=== PATIENT | female | born 1950 | race Caucasian/White ===

== ENCOUNTER 2019-08-15 09:20 | Outpatient (CLI) | payer MEDICARE, SELFPAY ==
[2019-08-15 09:57] LABS: Basophils Percent Auto 1.4 % (0.2-1.2); Eosinophils Absolute Auto 0.1 K/mm3 (0-0.3); Eosinophils Percent Auto 3.1 % (0-4.4); Hematocrit 41.4 % (37.0-47.0); Hemoglobin 12.9 g/dL (12.0-15.0); Immature Granulocyte Absolute 0.01 K/mm3 (0.00-0.031); Immature Granulocyte Percent A 0.3 % (0-0.5); Lymphocytes Absolute Auto 1.06 K/mm3 (0.9-3.2); Lymphocytes Percent Auto 36.3 % (18.3-44.2); Mean Corpuscular HGB Conc 31.2 g/dl (32-36); Mean Corpuscular Volume 86.6 fl (80-100); Monocytes Absolute Auto 0.2 K/mm3 (0.1-0.6); Monocytes Percent Auto 6.8 % (2.6-8.5); Neutrophils Absolute Auto 1.5 K/mm3 (1.3-6.7); Neutrophils Percent Auto 52.1 % (45.5-73.1); Platelet Count Result 123 k/mm3 (150-375); Red Blood Count 4.78 M/mm3 (4.2-5.4); Red Cell Distribution Width 15.7 % (11.5-14.5); White Blood Count 2.9 K/mm3 (4.5-10.0)
[2019-08-15 12:04] LABS: Vitamin D 25 Hydroxy 44.6 ng/mL
[2019-08-15 12:27] LABS: Iron 108 ug/dL (37-170); Percent Iron Saturation 29 % (20-50)
[2019-08-15 12:47] LABS: LDL Cholesterol Direct 112 mg/dL
[2019-08-15 12:51] LABS: Alanine Aminotransferase 16 U/L (4-35); Albumin Level 4.7 g/dL (3.5-5.1); Alkaline Phosphatase 96 U/L (38-126); Aspartate Amino Transferase 23 U/L (14-36); Bilirubin,Total 0.5 mg/dL (0.2-1.3); Blood Urea Nitrogen 18 mg/dL (7-17); Calcium 10.4 mg/dL (8.4-10.2); Carbon Dioxide 30 mmol/L (22-30); Chloride 103 mmol/L (98-107); Cholesterol 167 mg/dL (0-200); Estimated Glomerular Filt Rate > 60; Glucose 110 mg/dL (65-105); HDL Direct 42 mg/dL; Potassium 4.7 mmol/L (3.4-5.0); Sodium 139 mmol/L (137-145); Thyroid Stimulating Hormone 0.869 uIU/mL (0.465-4.680); Triglycerides 98 mg/dL (<150)
[2019-08-15 14:03] LABS: Free T4 Free Thyroxine 1.04 ng/mL (0.78-2.19)
== END 2019-08-15 09:21 | disposition home or self-care (01) ==
PROVIDERS: PCP Internal Medicine; Visit Provider Internal Medicine Hematology & Oncology
DX: E78.5 Hyperlipidemia, unspecified (principal); E55.9 Vitamin D deficiency, unspecified; D69.59 Other secondary thrombocytopenia
CPT/HCPCS: 36415; 80053; 80061; 82306; 82728; 83540; 83550; 84439; 84443; 85025; 85055

== ENCOUNTER 2020-02-10 14:05 | Outpatient (CLI) | payer MEDICARE, SELFPAY ==
[2020-02-10 14:39] LABS: Basophils Percent Auto 0.8 % (0.2-1.2); Eosinophils Absolute Auto 0.1 K/mm3 (0-0.3); Eosinophils Percent Auto 2.7 % (0-4.4); Hematocrit 38.4 % (37.0-47.0); Hemoglobin 12.1 g/dL (12.0-15.0); Immature Granulocyte Absolute 0.01 K/mm3 (0.00-0.031); Immature Granulocyte Percent A 0.3 % (0-0.5); Immature Platelet Fraction Pct 24.3 % (0.9-11.2); Lymphocytes Percent Auto 37.9 % (18.3-44.2); Mean Corpuscular HGB Conc 31.5 g/dl (32-36); Mean Corpuscular Hemoglobin 27.3 pg (26-34); Mean Corpuscular Volume 86.7 fl (80-100); Monocytes Absolute Auto 0.3 K/mm3 (0.1-0.6); Neutrophils Absolute Auto 1.9 K/mm3 (1.3-6.7); Neutrophils Percent Auto 51.3 % (45.5-73.1); Platelet Count Result 118 k/mm3 (150-375); Red Blood Count 4.43 M/mm3 (4.2-5.4); Red Cell Distribution Width 15.6 % (11.5-14.5); White Blood Count 3.7 K/mm3 (4.5-10.0)
[2020-02-10 17:30] LABS: Iron 66 ug/dL (37-170)
[2020-02-10 17:31] LABS: Alanine Aminotransferase 21 U/L (4-35); Albumin Level 4.1 g/dL (3.5-5.1); Alkaline Phosphatase 86 U/L (38-126); Anion Gap 9 mmol/L (8-16); Aspartate Amino Transferase 29 U/L (14-36); Bilirubin,Total 0.2 mg/dL (0.2-1.3); Blood Urea Nitrogen 24 mg/dL (7-17); Calcium 10.3 mg/dL (8.4-10.2); Carbon Dioxide 28 mmol/L (22-30); Chloride 102 mmol/L (98-107); Estimated Glomerular Filt Rate > 60; Glucose 92 mg/dL (65-105); Potassium 4.6 mmol/L (3.4-5.0); Sodium 139 mmol/L (137-145)
[2020-02-10 17:43] LABS: Percent Iron Saturation 17 % (20-50)
== END 2020-02-10 14:06 | disposition home or self-care (01) ==
PROVIDERS: PCP Internal Medicine; Visit Provider Internal Medicine Hematology & Oncology
DX: D72.819 Decreased white blood cell count, unspecified (principal); D50.9 Iron deficiency anemia, unspecified
CPT/HCPCS: 36415; 80053; 82728; 83540; 83550; 85025; 85055

== ENCOUNTER 2020-08-11 15:18 | Outpatient (CLI) | payer MEDICARE, SELFPAY ==
[2020-08-11 15:42] LABS: Basophils Percent Auto 1.3 % (0.2-1.2); Eosinophils Absolute Auto 0.1 K/mm3 (0-0.3); Eosinophils Percent Auto 3.2 % (0-4.4); Hematocrit 38.5 % (37.0-47.0); Hemoglobin 12.1 g/dL (12.0-15.0); Immature Granulocyte Absolute 0.01 K/mm3 (0.00-0.031); Immature Granulocyte Percent A 0.3 % (0-0.5); Lymphocytes Absolute Auto 1.53 K/mm3 (0.9-3.2); Lymphocytes Percent Auto 48.7 % (18.3-44.2); Mean Corpuscular HGB Conc 31.4 g/dl (32-36); Mean Corpuscular Hemoglobin 27.3 pg (26-34); Mean Corpuscular Volume 86.7 fl (80-100); Monocytes Absolute Auto 0.2 K/mm3 (0.1-0.6); Monocytes Percent Auto 6.7 % (2.6-8.5); Neutrophils Absolute Auto 1.3 K/mm3 (1.3-6.7); Neutrophils Percent Auto 39.8 % (45.5-73.1); Platelet Count Result 122 k/mm3 (150-375); Red Blood Count 4.44 M/mm3 (4.2-5.4); White Blood Count 3.1 K/mm3 (4.5-10.0)
[2020-08-11 16:44] LABS: Alanine Aminotransferase 16 U/L (4-35); Albumin Level 4.2 g/dL (3.5-5.1); Alkaline Phosphatase 91 U/L (38-126); Anion Gap 9 mmol/L (8-16); Aspartate Amino Transferase 25 U/L (14-36); Bilirubin,Total 0.2 mg/dL (0.2-1.3); Blood Urea Nitrogen 24 mg/dL (7-17); Calcium 10.1 mg/dL (8.4-10.2); Carbon Dioxide 27 mmol/L (22-30); Chloride 104 mmol/L (98-107); Estimated Glomerular Filt Rate > 60; Glucose 98 mg/dL (65-105); Potassium 4.6 mmol/L (3.4-5.0); Sodium 140 mmol/L (137-145)
[2020-08-11 17:18] LABS: Iron 70 ug/dL (37-170)
[2020-08-11 17:28] LABS: Percent Iron Saturation 21 % (20-50)
== END 2020-08-11 15:19 | disposition home or self-care (01) ==
LOC: ANHLAB 15:24
PROVIDERS: PCP Internal Medicine; Visit Provider Internal Medicine Hematology & Oncology
DX: D50.9 Iron deficiency anemia, unspecified (principal)
CPT/HCPCS: 36415; 80053; 82728; 83540; 83550; 85025; 85055

== ENCOUNTER 2022-03-25 14:24 | Outpatient (CLI) | payer MEDICARE, SELFPAY ==
[2022-03-25 14:40] LABS: Basophils Absolute Auto 0.1 K/mm3 (0.0-0.1); Basophils Percent Auto 1.4 % (0.2-1.2); Eosinophils Absolute Auto 0.1 K/mm3 (0-0.3); Eosinophils Percent Auto 3.2 % (0-4.4); Hematocrit 35.7 % (37.0-47.0); Hemoglobin 11.2 g/dL (12.0-15.0); Immature Granulocyte Absolute 0.01 K/mm3 (0.00-0.031); Immature Granulocyte Percent A 0.3 % (0-0.5); Immature Platelet Fraction Pct 24.3 % (0.9-11.2); Lymphocytes Absolute Auto 1.78 K/mm3 (0.9-3.2); Lymphocytes Percent Auto 48.1 % (18.3-44.2); Mean Corpuscular HGB Conc 31.4 g/dl (32-36); Mean Corpuscular Hemoglobin 27.3 pg (26-34); Mean Corpuscular Volume 86.9 fl (80-100); Monocytes Absolute Auto 0.4 K/mm3 (0.1-0.6); Monocytes Percent Auto 9.5 % (2.6-8.5); Neutrophils Absolute Auto 1.4 K/mm3 (1.3-6.7); Neutrophils Percent Auto 37.5 % (45.5-73.1); Platelet Count Result 134 k/mm3 (150-375); Red Blood Count 4.11 M/mm3 (4.2-5.4); Red Cell Distribution Width 17.2 % (11.5-14.5); White Blood Count 3.7 K/mm3 (4.5-10.0)
[2022-03-25 14:50] LABS: Anisocytosis 1+ (NORMAL); Atypical Lymphocytes Present; Crenated RBC 1+ (NORMAL); Ovalocytes 1+ (NORMAL); Platelet Estimate Decreased (Adequate); Poikilocytosis 2+ (NORMAL); Schistocytes None Seen (NORMAL)
[2022-03-25 15:19] LABS: Alanine Aminotransferase 20 U/L (6-35); Albumin Level 4.6 g/dL (3.5-5.1); Alkaline Phosphatase 83 U/L (38-126); Anion Gap 5 mmol/L (8-16); Aspartate Amino Transferase 29 U/L (14-36); Bilirubin,Total 0.3 mg/dL (0.2-1.3); Blood Urea Nitrogen 26 mg/dL (7-17); Calcium 9.9 mg/dL (8.4-10.2); Carbon Dioxide 31 mmol/L (22-30); Chloride 100 mmol/L (98-107); Estimated Glomerular Filt Rate > 60; Glucose 99 mg/dL (65-110); Potassium 4.5 mmol/L (3.4-5.0); Sodium 136 mmol/L (137-145)
[2022-03-25 15:45] LABS: Iron 70 ug/dL (37-170)
[2022-03-25 15:54] LABS: Percent Iron Saturation 18 % (20-50)
== END 2022-03-25 14:25 | disposition home or self-care (01) ==
LOC: ANHLAB 14:26
PROVIDERS: PCP Internal Medicine; Visit Provider Internal Medicine Hematology & Oncology
DX: D72.819 Decreased white blood cell count, unspecified (principal); D69.59 Other secondary thrombocytopenia
CPT/HCPCS: 36415; 80053; 83540; 83550; 85025; 85055

== ENCOUNTER 2022-09-23 14:14 | Outpatient (CLI) | payer MEDICARE, SELFPAY ==
[2022-09-23 14:30] LABS: Basophils Percent Auto 1.1 % (0.2-1.2); Eosinophils Absolute Auto 0.1 K/mm3 (0-0.3); Eosinophils Percent Auto 3.7 % (0-4.4); Hemoglobin 11.4 g/dL (12.0-15.0); Immature Granulocyte Absolute 0.09 K/mm3 (0.00-0.031); Immature Granulocyte Percent A 2.6 % (0-0.5); Immature Platelet Fraction Pct 23.4 % (0.9-11.2); Lymphocytes Absolute Auto 1.63 K/mm3 (0.9-3.2); Lymphocytes Percent Auto 46.8 % (18.3-44.2); Mean Corpuscular HGB Conc 30.8 g/dl (32-36); Mean Corpuscular Hemoglobin 26.8 pg (26-34); Mean Corpuscular Volume 86.9 fl (80-100); Monocytes Absolute Auto 0.3 K/mm3 (0.1-0.6); Monocytes Percent Auto 9.8 % (2.6-8.5); Neutrophils Absolute Auto 1.3 K/mm3 (1.3-6.7); Platelet Count Result 134 k/mm3 (150-375); Red Blood Count 4.26 M/mm3 (4.2-5.4); Red Cell Distribution Width 17.9 % (11.5-14.5); White Blood Count 3.5 K/mm3 (4.5-10.0)
[2022-09-23 14:39] LABS: Atypical Lymphocytes Present; Giant Platelets Present; Platelet Estimate Decreased (Adequate); Schistocytes None Seen (NORMAL)
[2022-09-23 15:34] LABS: Iron 78 ug/dL (37-170)
[2022-09-23 15:37] LABS: Anion Gap 5 mmol/L (8-16); Blood Urea Nitrogen 25 mg/dL (7-17); Calcium 10.4 mg/dL (8.4-10.2); Carbon Dioxide 32 mmol/L (22-30); Chloride 102 mmol/L (98-107); Estimated Glomerular Filt Rate > 60; Glucose 106 mg/dL (65-110); Potassium 4.5 mmol/L (3.4-5.0); Sodium 139 mmol/L (137-145)
[2022-09-23 15:43] LABS: Percent Iron Saturation 21 % (20-50)
[2022-09-23 16:47] LABS: Folic Acid > 20.0 ng/mL (2.76->20)
== END 2022-09-23 14:15 | disposition home or self-care (01) ==
LOC: ANHLAB 14:16
PROVIDERS: PCP Internal Medicine; Visit Provider Internal Medicine Hematology & Oncology
DX: D50.9 Iron deficiency anemia, unspecified (principal)
CPT/HCPCS: 36415; 80048; 82607; 82728; 82746; 83540; 83550; 85025; 85055

== ENCOUNTER 2023-10-06 13:05 | Outpatient (CLI) | payer MEDICARE, SELFPAY ==
[2023-10-06 14:42] LABS: Basophils Percent Auto 0.9 % (0.2-1.2); Eosinophils Absolute Auto 0.1 K/mm3 (0-0.3); Eosinophils Percent Auto 1.7 % (0-4.4); Hematocrit 33.2 % (37.0-47.0); Hemoglobin 10.5 g/dL (12.0-15.0); Immature Granulocyte Absolute 0.01 K/mm3 (0.00-0.031); Immature Granulocyte Percent A 0.3 % (0-0.5); Immature Platelet Fraction Pct 27.1 % (0.9-11.2); Lymphocytes Absolute Auto 1.12 K/mm3 (0.9-3.2); Lymphocytes Percent Auto 32.7 % (18.3-44.2); Mean Corpuscular HGB Conc 31.6 g/dl (32-36); Mean Corpuscular Hemoglobin 26.8 pg (26-34); Mean Corpuscular Volume 84.7 fl (80-100); Monocytes Absolute Auto 0.3 K/mm3 (0.1-0.6); Monocytes Percent Auto 7.9 % (2.6-8.5); Neutrophils Absolute Auto 1.9 K/mm3 (1.3-6.7); Neutrophils Percent Auto 56.5 % (45.5-73.1); Platelet Count Result 115 k/mm3 (150-375); Red Blood Count 3.92 M/mm3 (4.2-5.4); Red Cell Distribution Width 19.2 % (11.5-14.5); White Blood Count 3.4 K/mm3 (4.5-10.0)
[2023-10-06 15:30] LABS: Alanine Aminotransferase 13 U/L (6-35); Albumin Level 4.3 g/dL (3.5-5.1); Alkaline Phosphatase 84 U/L (38-126); Anion Gap 11 mmol/L (4-12); Aspartate Amino Transferase 23 U/L (14-36); Bilirubin,Total 0.7 mg/dL (0.2-1.3); Blood Urea Nitrogen 36 mg/dL (7-17); Calcium 10.3 mg/dL (8.4-10.2); Carbon Dioxide 25 mmol/L (22-30); Chloride 101 mmol/L (98-107); Estimated Glomerular Filt Rate > 60; Glucose 97 mg/dL (65-110); Potassium 3.9 mmol/L (3.4-5.0); Sodium 137 mmol/L (137-145)
[2023-10-06 15:35] LABS: Iron 76 ug/dL (37-170)
[2023-10-06 16:04] LABS: Percent Iron Saturation 24 % (20-50)
[2023-10-06 16:45] LABS: Folic Acid > 20.0 ng/mL (2.76->20)
== END 2023-10-06 13:06 | disposition home or self-care (01) ==
PROVIDERS: PCP Internal Medicine; Visit Provider Nurse Practitioner Family
DX: D50.9 Iron deficiency anemia, unspecified (principal)
CPT/HCPCS: 36415; 80053; 82607; 82728; 82746; 83540; 83550; 85025; 85055

== ENCOUNTER 2024-05-17 10:45 | Outpatient (CLI) | payer MEDICARE, SELFPAY ==
[2024-05-17 11:20] LABS: Basophils Absolute Auto 0.1 K/mm3 (0.0-0.1); Basophils Percent Auto 1.6 % (0.2-1.2); Eosinophils Absolute Auto 0.1 K/mm3 (0-0.3); Eosinophils Percent Auto 3.1 % (0-4.4); Hematocrit 35.1 % (37.0-47.0); Hemoglobin 10.8 g/dL (12.0-15.0); Immature Granulocyte Absolute 0.01 K/mm3 (0.00-0.031); Immature Granulocyte Percent A 0.3 % (0-0.5); Immature Platelet Fraction Pct 22.1 % (0.9-11.2); Lymphocytes Absolute Auto 1.59 K/mm3 (0.9-3.2); Lymphocytes Percent Auto 49.5 % (18.3-44.2); Mean Corpuscular HGB Conc 30.8 g/dl (32-36); Mean Corpuscular Volume 84.6 fl (80-100); Monocytes Absolute Auto 0.3 K/mm3 (0.1-0.6); Monocytes Percent Auto 9.3 % (2.6-8.5); Neutrophils Absolute Auto 1.2 K/mm3 (1.3-6.7); Neutrophils Percent Auto 36.2 % (45.5-73.1); Platelet Count Result 138 k/mm3 (150-375); Red Blood Count 4.15 M/mm3 (4.2-5.4); Red Cell Distribution Width 19.3 % (11.5-14.5); White Blood Count 3.2 K/mm3 (4.5-10.0)
[2024-05-17 11:30] LABS: Alanine Aminotransferase 21 U/L (6-35); Albumin Level 4.5 g/dL (3.5-5.1); Alkaline Phosphatase 89 U/L (38-126); Anion Gap 9 mmol/L (4-12); Aspartate Amino Transferase 27 U/L (14-36); Bilirubin,Total 0.4 mg/dL (0.2-1.3); Blood Urea Nitrogen 24 mg/dL (7-17); Calcium 10.2 mg/dL (8.4-10.2); Carbon Dioxide 29 mmol/L (22-30); Chloride 103 mmol/L (98-107); Estimated Glomerular Filt Rate > 60; Glucose 95 mg/dL (65-110); Potassium 4.7 mmol/L (3.4-5.0); Sodium 141 mmol/L (137-145)
[2024-05-17 11:31] LABS: Iron 105 ug/dL (37-170)
--- OUTSIDE RECORDS SUMMARY | 2024-05-17 11:39 | XMS_ITS | CONTINUITY OF CARE DOCUMENT ---
Author Name laurel barragan Address Unknown Organization [facility] Address [address] [place] [address] Phone [phone] Care Team Providers Care Polysomnographic Tech Name Role Phone Rayne NAVARRO, Santiago Unavailable [phone] RAHDA NAVARRO, BERNICE Unavailable RADHA NAVARRO, BERNICE Unavailable PROBLEMS Condition Status Date Provider Notes Murmur, cardiac, undiagnosed active [facility] INSURANCE PROVIDERS Payer name Policy type / Coverage type [place] [employer] GOLD PLUS HMO HMO HU[employer] PPO HMO [id number] TREATMENT PLAN Date Name Complete Echo
--- OUTSIDE RECORDS SUMMARY | 2024-05-17 11:39 | XMS_ITS | Clinical Summary ---
Author Organization [facility] Address [address] [place] [address] Care Team Providers Care Dress Fitter Name Role Phone Adolfo Gutiérrez MD Primary Care Provider Allergies Active Allergy Reactions Criticality Noted Date Comments Anesthetics - Amide Type - Select Amino Amides Other (See Comments) 02/06/2019 Anesthetics - Maria Dolores Type- Parabens Other (See Comments) 02/06/2019 Medications metoprolol tartrate (LOPRESSOR) 100 mg tablet Take 100 mg by mouth daily . 03/08/2018 Active pravastatin (PRAVACHOL) 20 mg tablet Take 20 mg by mouth daily . 03/20/2018 Active famotidine (PEPCID) 20 mg tablet Take 20 mg by mouth daily . Active C,E,zinc,copper 11/grsxt7h/lut (OCUVITE ADULT 50 PLUS ORAL) Take by mouth. Active cyanocobalamin 1,000 mcg Tablet Take 1,000 mcg by mouth daily. Active mv-mn-folic ac-vit K-herb 289 (ALIVE ONCE DAILY WOMEN 50 PLUS) 800-100 mcg Tablet Alive Once Daily Women 50 Plus 1 tablet daily Active qray-OU-ynx-epa -ZWV-MFWW-ls-mv 1.5 mg iron- 8.73 mg capsule,IR & delay rel,biphase iron 65mg daily Active glucosam-chond- hyalu-CF borate (MOVE FREE JOINT HEALTH) 750 mg-100 mg- 1.65 mg-108 mg Tablet Move Free Joint Health 2 tablets daily Active Vascepa 1 gram Capsule Take 2 Grams by mouth 2 times daily with meals. 01/02/2023 Active hydroCHLOROthia zide 12.5 mg tablet Take 12.5 mg by mouth daily. 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 Encounters Date Type Department Care Team Description 05/15/2024 External Device Data [facility] ABSTRACTION Provider, Abstract 04/30/2024 External Device Data [facility] Provider, Abstract 04/09/2024 External Device Data [facility] Provider, Abstract 04/03/2024 External Device Data [facility] Provider, Abstract 04/03/2024 External Device Data [facility] ABSTRACTION Provider, Abstract from Last 3 Months Family History Medical History Relation Name Comments Heart Disease Father Stroke Mother Relation Name Status Comments Father Mother Social History Tobacco Use Types Packs/Day Years Used Date Smoking Tobacco: Former Cigarettes 1 10 Smokeless Tobacco: Never Tobacco Cessation:Counseling Given: Not Answered Alcohol Use Standard Drinks/Week Comments Yes 0 (1 standard drink = 0.6 oz pur e alcohol) occassional Comments No Sex and Gender Information Value Date Recorded Sex Assigned at Not on file Legal Sex Female 3:35 PM [employer] Gender Identity Not on file Sexual Orientation Not on file Last Filed Vital Signs Vital Sign Reading Time Taken Comments Blood Pressure 123/66 04/10/2023 3:30 PM [employer] Pulse 76 04/10/2023 3:30 PM [employer] Temperature 36.4 C (97.6 F) 03/30/2022 3:01 PM [employer] Respiratory Rate 16 04/10/2023 3:30 PM [employer] Oxygen Saturation 97% 04/10/2023 3:30 PM [employer] Inhaled Oxygen Concentration - - Weight 83.2 kg (183 lb 6.4 oz) 04/10/2023 3:30 P M [employer] Height 170.2 cm (5' 7 ) 02/06/2019 1:40 PM [employer] Body Mass Index 28.72 02/06/2019 1:40 PM [employer] Plan of Treatment Upcoming Encounters Date Type Department Care Team (Late st Contact Info) Description 05/23/2024 11:30 AM CDT Office Visit [facility] - [place] [address] [place] [address] Lawrence Lacey MD [address] [place] [address] Health Maintenance Due Date Last Done Comments DTAP/TDAP/TD VACCINES (1 - Tdap) 1967 ZOSTER VACCINE (1 of 2) 1998 OSTEOPOROSIS SCREENING 2013 RSV VACCINE (60+ or ) (1 - 1-dose 75+ series) 2023 INFLUENZA VACCINE (#1) 2023 3, 01/06/2021, 02/24/2020, Additional history exists Medicare Ad[place] ([place]) Preventative Visit/Annual Wellness Visit 03/13/2024 COLORECTAL SCREENING Discontinued 11/12/2009 Colorectal Cancer Screening Discontinued PNEUMOCOCCAL VACCINE 50+ YEARS Completed 06/09/2021 , 10/21/2019 FIT-DNA Q 3 years Discontinued FIT/FOBT Q 1 year Discontinued Flex Sig/CT Colonography Q 5 years Discontinued Insurance [employer] [facility] [employer] [facility] Care Teams Dress Fitter Relationship Specialty Start Date End Date Adolfo Gutiérrez MD PCP - General Internal Medicine 04/11/18
--- OUTSIDE RECORDS SUMMARY | 2024-05-17 11:40 | XMS_ITS | Data Portability ---
Author Organization [place] [facility] [employer], Main Office Address [address] [place] [address] Care Team Providers Care Vessel Welder Name Role Phone ADOLFO GUTIÉRREZ Primary Care Provider Assessment Encounter Date Assessment Date Assessment LastModified by Organization Details LastModified Time 07/10/2023 07/10/2023 04/30/2022: TSH 0.18L, FT4 1.2 LIPIDS: HDL 35 CMP: WNL A1C 5.7 CBC: WBC 3.4L, HGB 11.6, PLT 127L 09/23/2022: Dr Lacey WBC 3.5, HGB 11.4, PLT 134 Addendum: Labs after she left, case sent to [place] 12/17/2022: TSH 0.14L, FT4 1.0 Gluc 105 A1C 5.4 WBC 3.0, HGB 11.1 06/27/2023: Gluc 101 Ca 10.9 A1C 5.8 WBC 2.4L, HGB 11.1 [email or web address] Not available 07/20/2023 09:01:07 11/29/2023 11/29/2023 04/30/2022: TSH 0.18L, FT4 1.2 LIPIDS: HDL 35 CMP: WNL A1C 5.7 CBC: WBC 3.4L, HGB 11.6, PLT 127L 09/23/2022: Dr Lacey WBC 3.5, HGB 11.4, PLT 134 Addendum: Labs after she left, case sent to [place] 12/17/2022: TSH 0.14L, FT4 1.0 Gluc 105 A1C 5.4 WBC 3.0, HGB 11.1 06/27/2023: Gluc 101 Ca 10.9 A1C 5.8 WBC 2.4L, HGB 11.1 10/06/2023: Nargis Salazar [employer] BUN 26H WBC 3.4L, H/H 10.5/33.2, PLT 115 [email or web address] Not available 11/29/2023 15:01:18 Plan of Treatment Reminders Order Date Submit Date Provider Last Modified By Organization Details Last Modified Time Details Appointments None recorded. Lab HbA1c (hemoglob in A1c), blood 2023 [facility], [address], [place], [address], 4 15:39:51 microalbu min, urine 2023 [facility], [address], [place], [address], 4 15:39:53 PTH (parathyr oid hormone), intact, serum or plasma 2023 024 [employer] [facility], [address], [place], [address], 4 15:39:48 BMP, serum or plasma 2023 024 [email or web address] [facility], [address], [place], [address], 4 09:05:05 CMP, serum or plasma 2023 024 [facility], [address], [place], [address], 4 15:39:48 T4, free, serum 2023 024 [facility], [address], [place], [address], 4 15:39:49 CBC w/ auto diff 2023 024 [facility], [address], [place], [address], 4 15:39:49 TSH, serum or plasma 2023 024 [facility], [address], [place], [address], 4 15:39:50 lipid panel, serum 2023 024 [facility], [address], [place], [address], 4 15:39:52 PTH (parathyr oid hormone), intact, serum or plasma 2023 024 [email or web address], [address], [place], [address], 4 09:44:57 BMP, serum or plasma 2023 024 [facility], [address], [place], [address], 4 18:03:25 CMP, serum or plasma 2023 024 [facility], [address], [place], [address], 4 17:51:52 T4, free, serum 2023 024 [email or web address], [address], [place], [address], 4 14:11:39 CBC w/ auto diff 2023 024 [email or web address], [address], [place], [address], 4 14:11:39 TSH, serum or plasma 2023 024 [place] [address] [facility], [address], [place], [address], 4 14:11:39 lipid panel, serum 2023 024 [place] [address] [facility], [address], [place], [address], 4 14:11:39 HbA1c (hemoglob in A1c), blood 2023 024 [place] [address] [facility], [address], [place], [address], 4 14:11:38 microalbu min, urine 2023 024 [place] [address] [facility], [address], [place], [address], 4 14:11:38 Referral podiatris t referral 2023 024 NIGEL Moncada DPM, [address] [facility], [address], [place], [address], 4 16:23:25 podiatris t referral 2023 024 joan Moncada DPM, [address] [facility], [address], [place], [address], 4 14:11:49 Procedures None recorded. Surgeries None recorded. Imaging US, thyroid 2023 [email or web address] , [place], [address], 15:59:44 US, thyroid [address] , [place], [address], 12:55:26 Medication Orders Diflucan 150 mg tablet 2023 024 [facility], [address] [facility], [place], [address], 4 12:33:00 Diflucan 150 mg tablet [address] [id number], [address], [place], [place], [id number], 4 16:06:44 Vascepa 1 gram capsule 2023 024 [facility], [address], [place], [address], 4 15:59:59 Keflex 250 mg capsule [email or web address] [facility], [address], [place], [place], [id number], 4 15:46:12 Patient TargetsNo targets recorded. Patient Instructions Encounter Date Encounter Id Patient Instructions Last Modified By Organization Details Last Modified Time 07/10/2023 [id number] dementia rating scale-2* [email or web address] 2 Not available 07/20/2023 09:00:11 Timed Up and Go test (TUG)* [email or web address] 2 Not available 07/20/2023 09:00:11 alcohol misuse* [email or web address] Not available 07/20/2023 12:54:17 depression screening* [email or web address] 2 Not available 07/20/2023 09:00:12 multi-dimensiona l health assessment questionnaire* [email or web address] 2 Not available 07/20/2023 09:00:11 advance directiv es: care instructions [email or web address] 2 Not available 07/20/2023 09:00:11 advance care planning: care instructions alisa 2 Not available 07/20/2023 09:00:11 [place] Advance Directives alisa 2 Not available 07/20/2023 09:00:11 Personalized [facility] Plan and Screening Recommendations Advance Directives - Do you have one? Yes Advance Directives - Do we have your advance directive on file in your health record? Yes Primary Prevention/Interven tion (prevents or decreases the chance of common diseases from occurring) Smoking Risk: Non Smoker Alcohol Misuse Screening: Negative Weight: Appropriate Overwei ght continue your current weight loss efforts try to lose 5% of your body weight try to lose 10% of your body weight Physical activity: Need more exercise/physical activity minimum of 10-20 minutes of activity that causes mild breathlessness/day Nutrition: Good Average Refer to attached handout Heart-Healthy Diet: After Your Visit Fall Risk (screened today): Low Intermediate Refer to attached handout Preventing Falls: After your Visit Vaccines Pneumococcal: Ordered Recommended today Recommended today, but you have declined No further needed Influenza: Your next one in the fall of this year Chronic Disease Risks Stroke: Low Risk Intermediate Risk I have no recommendations Heart Attack: Low risk Intermediate Risk I have no recommendations Clogging of the Arteries: Low risk Intermediate Risk Diabetes: High Risk I have no recommendations Ref er to attached handout P re-diabetes: After Your Visit Secondary Prevention/Interven tion (detects treatable diseases before they may cause symptoms, disability, or ) Breast Cancer Screening with mammogram: Cervical/Uterine/Ov shruthi Cancer Screening: Osteoporosis Screening: Date Screening Last Performed: Patient declined Colon Cancer Screening: Colonoscopy Date Screening Last Performed: 2009 Eye Disease Screening: Ordered Recommended today Dementia Risk: Low I have no recommendations Depression Screening: Negative [email or web address] Not available 07/10/2023 17:21:17 Reason for Referral Digital Asset Specialist Referral for Hype rglycemia Referring Physician: Adolfo Gutiérrez [facility], Encounter Date: 07/10/2023 Digital Asset Specialist Referral for Hype rglycemia Referring Physician: Adolfo Gutiérrez [facility], Encounter Date: 11/29/2023 Results Created Date Observation Date Name Description Value Unit Range Abnormal Flag Note LastModifiedBy Organization Detail LastModifiedTime Result Notes None recorded. Problems Name Problem SNOMED Code Status Onset Date Resolution Date Notes Provider Name and Address Organization Details Recorded Time Hyperlipidemi a 61027828 Active 2022 Not Available [facility] 3 12:58:17 Gastroesophag eal reflux disease without esophagitis 626163156 Active 2022 Not Available [facility] 3 12:58:17 Thrombocytope kt disorder 351916960 Active 2022 Not Available [facility] 3 12:58:17 Hyperglycemia 81805867 Active 2022 Not Available [facility] 3 12:58:17 Heart murmur 04535646 Active 2022 Not Available [facility] 3 12:58:17 Thyroid stimulating hormone level above reference range 203991152 Active 2022 Not Available [facility] 3 12:58:17 Skin lesion 90537759 Active 2022 Not Available [facility] 3 12:58:17 Hypercalcemia 81075796 Active 2023 Adolfo avila MD [address], [address], [place], [address] , [facility] 4 15:59:04 Hypothyroidis m 37883272 Active 2023 Adolfo avila MD [address], [address], [place], [address] , [facility] 4 16:17:37 Onychomycosis of toenails 807318128 Active 2023 TONY Lindo null, [facility] 4 15:52:49 Edema of lower extremity 328196822 Active 2023 Zeb Eng DPM [address], [address], [place], [address] , [facility] 4 16:06:16 Congenital pes planus 46135719 Active 2023 Zeb Eng DPM [address], [address], [place], [address] , [employer] 4 16:06:36 Abnormal urine 295332485 Active Not Available [facility] 3 12:58:17 Thyroid nodule 251257683 Active Not Available [facility] 3 12:58:17 Furuncle 278668102 Active Not Available [facility] 3 12:58:17 Essential hypertension 38625003 Active Not Available [facility] 3 12:58:17 Problem Notes None recorded. Procedures Surgical History Date Name Laterality Status Provider Name and Address Organization Details Recorded Time 11/02/19 24 Nail Debridement completed Zeb nEg DPM [address], [facility] [address], [place], [address], [employer] 11/03/2023 09:24:16 07/27/19 24 Nail Debridement completed Zeb Eng DPM [address], [place] [address], [place], [address], [employer] 07/27/2023 16:05:37 07/10/19 24 Medicare Wellness CPT Code, subsequent completed Jani Yusuf LPN [employer] 07/10/2023 16:49:06 07/10/19 24 Advanced Care Planning completed Jani Yusuf LPN [employer] 07/10/2023 17:09:59 11/13/19 10 Date of Last Colonoscopy completed Not Available [facility] 05/11/2022 04:42:50 [facility]sterectomy completed [facility] 04:42:57 Thyroid Surgery completed [facility] Available [facility] 05/11/2022 04:42:57 Imaging Results None recorded. Procedure Notes None recorded. Medical Equipment None Reported. Allergies Allergen ID Allergen Name Allergen Category Reaction Reaction Severity Criticality Documentation Date Start Date Code Code System Note Provider Name and Address Organization Details Recorded Time 8991 Local anestheti c (substanc e) medicatio n Not available Not available Not available 05/11/2022 42068 7003 SNOMED Not Available [facility] 3 05:06:51 8992 lidocaine medicatio n Not available Not available Not available 05/11/2022 6387 RxNorm Not Available [facility] 3 05:06:51 Medications Name Sig Start Date Stop Date Status Note LastModified by Organization Details LastModified Time azithromy pankaj 250 mg tablet 07/09 completed Not Available Not Available Not Available pravastat in 40 mg tablet TAKE 1 TABLET EVERY EVENING active Not Available Not Available No t Available metoprolo l tartrate 100 mg tablet TAKE 1 TABLET EVERY DAY active Not Available Not Available No t Available fluconazo le 150 mg tablet TAKE 2 TABLETS BY MOUTH IMMEDIAT LESTER THEN TAKE 1 TABLET BY MOUTH EVERY WEEK active Not Available Not Available No t Available cephalexi n 250 mg capsule TAKE 1 CAPSULE BY MOUTH EVERY 6 HOURS FOR 7 DAYS 07/09 completed Not Available Not Available Not Available acetamino phen 300 mg-codein e 30 mg tablet TK 1 T PO Q 4 H PRN active Not Available Not Available No t Available ciproflox acin 500 mg tablet Take 1 tablet every 12 hours by oral route for 7 days. 11/03 completed Not Available Not Available Not Available benzonata te 100 mg capsule TAKE 1 CAPSULE BY MOUTH EVERY 8 HOURS NEEDED 07/09 completed Not Available Not Available Not Available hydrochlo rothiazid e 12.5 mg capsule TAKE 1 CAPSULE EVERY DAY active Not Available Not Available No t Available pravastat in 20 mg tablet TAKE 1 TABLET EVERY DAY active Not Available Not Available No t Available hydrochlo rothiazid e 25 mg tablet 04/[address] Brittnee tubbs Not Available Not Available Not Available Pepcid 20 mg tablet Take 1 tablet every day by oral route. 2017 active Not Available Not Available Not Avai lable levofloxa pankaj 500 mg tablet TK 1 T PO ONCE D FOR 7 DAYS active Not Available Not Available No t Available Bactrim DS 800 mg-160 mg tablet Take 1 tablet every 12 hours by oral route for 10 days. 08/19 completed Not Available Not Available Not Available Cari 500 mg tablet Take 2 tablets every day by oral route as needed. 06/09 completed in the AM and PM Not Available Not Available Not Available Aleve Take 2 tablets daily 10/20 completed Not Available Not Available Not Available calcium 600mg daily 06/09 completed Not Available Not Available Not Available iron 65mg daily 2018 active Not Available Not Available Not Avai lable Prilosec Take one tablet daily 11/[address] Shaun jin advised pt not to take this medicati on anymore Not Available Not Available Not Available Centrum 1 TAB daily 2019 active Not Available Not Available Not Avai lable fenofibra te nanocryst allized 48 mg tablet TAKE 1 TABLET BY MOUTH EVERY DAY 10/22 completed Changed to Vascepa Not Available Not Available Not Available Excedrin Extra Strength Take as needed 10/29 completed Not Available Not Available Not Available B12 active Not Available Not Availa ble Not Available Probiotic active Not Available Not Elvia ilable Not Available krill oil 350mg daily 06/09 completed Not Available Not Available Not Available Osteo Bi-Flex 2021 active Not Available Not Available Not Avai lable Ocuvite Adult 50 Plus 1 tablet daily in the morning 06/09 completed Not Available Not Available Not Available Vascepa 1 gram capsule TAKE 2 CAPSULES TWICE DAILY (STOP FENOFIBR ATE) active Not Available Not Available No t Available Probiotic (S.boular dii) 250 mg capsule Take 1 capsule every day by oral route. 06/09 completed Not Available Not Available Not Available Vitamin B12 1 tablet daily 06/09 completed Not Available Not Available Not Available Move Free Joint Health 1 tablets daily 06/09 completed Not Available Not Available Not Available Fluzone High-Dose (PF) 180 mcg/0.5 mL intramusc ular syringe active Not Available Not Available Not Available Alive Once Daily Women 50 Plus 1 tablet daily 10/20 completed Not Available Not Available Not Available Vitals Date Recorded Body height Body mass index (BMI) Body weight Body temperature Heart rate Oxygen saturation Oxygen saturation in Arterial blood by Pulse oximetry Systolic blood pressure Diastolic blood pressure Provider Name and Address Organization Details Last Updated DateTime 3 167.64 cm 31 kg/m2 07738.7 4 g 97.6 [degF] 72 /min 98 % 98 % 126 mm[Hg] 74 mm[Hg] Mihaela Fernandes MA [facility] [employer] [facility] 3 11:00:27 Date Recorded Body height Body mass index (BMI) Body weight Body temperature Heart rate Systolic blood pressure Diastolic blood pressure Provider Name and Address Organization Details Last Updated DateTime 4 167.64 cm 29.7 kg/m2 81795 g 97.9 [degF] 78 /min 122 mm[Hg] 60 mm[Hg] Phoebe Bustamante [facility] [employer] [facility] 4 15:48:28 Date Recorded Pain severity - 0-10 verbal numeric rating [Score] - Reported Provider Name and Address Organization Details Last Updated DateTime 07/10/2023 0 Jani Yusuf LPN [facility] [employer] [facility] 07/10/2023 16:49:13 Date Recorded Body height Body mass index (BMI) Body weight Oxygen saturation Oxygen saturation in Arterial blood by Pulse oximetry Body temperature Heart rate Systolic blood pressure Diastolic blood pressure Provider Name and Address Organization Details Last Updated DateTime 4 167.64 cm 29.7 kg/m2 11537 g 98 % 98 % 97.9 [degF] 78 /min 131 mm[Hg] 71 mm[Hg] Bhavik Souza [facility] [employer] [facility] 4 15:36:14 Date Recorded Body height Body mass index (BMI) Body weight Oxygen saturation Oxygen saturation in Arterial blood by Pulse oximetry Body temperature Heart rate Provider Name and Address Organization Details Last Updated DateTime 4 167.64 cm 29.7 kg/m2 53969 g 96 % 96 % 98.4 [degF] 82 /min Bhavik Souza [facility] [employer] [facility] 4 15:58:10 Date Recorded Body height Body mass index (BMI) Body weight Body temperature Heart rate Respiratory rate Oxygen saturation Oxygen saturation in Arterial blood by Pulse oximetry Pain severity - 0-10 verbal numeric rating [Score] - Reported Systolic blood pressure Diastolic blood pressure Provider Name and Address Organization Details Last Updated DateTime 4 170.18 cm 29.1 kg/m2 25234.1 8 g 97.7 [degF] 74 /min 18 /min 95 % 95 % 3 128 mm[Hg] 72 mm[Hg] Jani Yusuf LPN [place] [facility] 15:05:39 Social History Question Answer Notes LastModified by Organization Details LastModified Time Tobacco Smoking Status Former Smoker Not Available [employer] 05/11/2022 04:29:03 Do You Have An Advance Directive? Yes POLST Done Today N File In Chart [email or web address] Information not available 07/10/2023 What Is Your Level Of Alcohol Consumption? None MIGRATION.276 [id number] Information not available 05/11/2022 Are You Blind Or Do You Have Difficulty Seeing? No Wears Glasses [email or web address] Information not available 07/10/2023 What Is Your Level Of Caffeine Consumption? Occasional MIGRATION.221 [id number] Information not available 05/11/2022 What Is Your Code Status? DNI CPR With No Intibation Or Mechanical Feeding Information not available 07/10/2023 In The 14 Days Before Symptom Onset, Have You Had Close Contact With A Laboratory-conf irmed COVID-19 While That Case Was Ill? No MIGRATION.022 [id number] Information not available 05/11/2022 In The 14 Days Before Symptom Onset, Have You Had Close Contact With A Person Who Is Under Investigation For COVID-19 While That Person Was Ill? No MIGRATION.604 [id number] Information not available 05/11/2022 Are You Currently Employed? No [email or web address] Information not available 07/10/2023 Are You Deaf Or Do You Have Serious Difficulty Hearing? No MIGRATION.215 [id number] Information not available 05/11/2022 What Type Of Diet Are You Following? REGULAR MIGRATION.469 [id number] Information not available 05/11/2022 What Is The Highest Grade Or Level Of School You Have Completed Or The Highest Degree You Have Received? [id number] MIGRATION.531 [id number] Information not available 05/11/2022 What Is Your Occupation? Retired MIGRATION.307 [id number] Information not available 05/11/2022 How Many Days Of Moderate To Strenuous Exercise, Like A Brisk Walk, Did You Do In The Last 7 Days? 3 [email or web address] Information not available 07/10/2023 Have There Been Any Changes To Your Family Or Social Situation? No MIGRATION.289 [id number] Information not available 05/11/2022 What Is The Fluoride Status Of Your Home? Unknown MIGRATION.902 [id number] Information not available 05/11/2022 When Did You Quit Smoking? 16+yearssincelastc igarette [email or web address] Information not available 07/10/2023 Are There Any Guns Present In Your Home? No MIGRATION.024 [id number] Information not available 05/11/2022 Do You Use Insect Repellent Routinely? No MIGRATION.693 [id number] Information not available 05/11/2022 Where Do You Live? [place] MIGRATION.067 [id number] Information not available 05/11/2022 Advance Directive- Providers Has Reviewed Directive And Consents To Follow Them (insert Provider Name With Any Objectives In Notes Field) Yes POLST FORM [email or web address] Information not available 07/10/2023 Guns Present In The Home? No [email or web address] Information not available 07/10/2023 Are You Able To Care For Yourself? Yes [email or web address] Information not available 07/10/2023 Are You Blind Or Do Yo Have Difficulty Seeing? No Wears Glasses [email or web address] Information not available 07/10/2023 Are You Deaf Or Do You Have Serious Difficulty Hearing? No [email or web address] Information not available 07/10/2023 General Stress Level? Low [email or web address] Information not available 07/10/2023 Live Alone Of With Others? Alone [email or web address] Information not available 07/10/2023 Do You Have A Medical Power Of Oyster Cultivator? No Inforamtion Given Today [email or web address] Information not available 07/10/2023 What Was The Date Of Your Most Recent Tobacco Screening? 11/02/2023 [email or web address] Information not available 11/02/2023 How Many Children Do You Have? 2 [email or web address] Information not available 07/10/2023 Do You Have Any Pets? Yes 3 Cats [email or web address] Information not available 07/10/2023 What Is Your Relationship Status? MIGRATION.729 [id number] Information not available 05/11/2022 Do You Use Your Seat Belt Or Car Seat Routinely? Yes MIGRATION.140 [id number] Information not available 05/11/2022 Do You Have Smoke And Carbon Monoxide Detectors In Your Home? Yes MIGRATION.604 [id number] Information not available 05/11/2022 At What Age Did You Start Smoking Tobacco? -1 [email or web address] Information not available 07/10/2023 Are You Passively Exposed To Smoke? No MIGRATION.563 [id number] Information not available 05/11/2022 Are There Any Smokers In Your House? No MIGRATION.900 [id number] Information not available 05/11/2022 What Types Of Sporting Activities Do You Participate In? None [email or web address] Information not available 07/10/2023 Do You Feel Stressed (tense, Restless, Nervous, Or Anxious, Or Unable To Sleep At Night)? [id number] MIGRATION.677 [id number] Information not available 05/11/2022 Do You Use Any Illicit Or Recreational Drugs? No MIGRATION.844 [id number] Information not available 05/11/2022 Do You Use Sunscreen Routinely? No MIGRATION.399 [id number] Information not available 05/11/2022 Has Tobacco Cessation Counseling Been Provided? No MIGRATION.886 [id number] Information not available 05/11/2022 How Many Years Have You Smoked Tobacco? 30 [email or web address] Information not available 07/10/2023 Have You Recently Traveled Abroad? No MIGRATION.640 [id number] Information not available 05/11/2022 Do You Have Any Dietary Restrictions? No MIGRATION.618 [id number] Information not available 05/11/2022 Do You Or Have You Ever Used Any Other Forms Of Tobacco Or Nicotine? No MIGRATION.979 [id number] Information not available 05/11/2022 Sex: Female Functional Status Question Answer Note LastModified by Acorio Details LastModified Time Do you have difficulty walking or climbing stairs? No MIGRATION.11708 [id number] Information not available 05/11/2022 Do you have transportation difficulties? No MIGRATION.58819 [id number] Information not available 05/11/2022 Are you able to walk? YESWOREST MIGRATION.69706 [id number] Information not available 05/11/2022 Do you have difficulty doing errands alone? No MIGRATION.83179 15149 Information not available 05/11/2022 Are you able to care for yourself? Yes MIGRATION.99220 [id number] Information not available 05/11/2022 Do you have difficulty dressing or bathing? No MIGRATION.60596 32526 Information not available 05/11/2022 What is your exercise level? Occasional active lifestyle MIGRATION.41716 14336 Information not available 05/11/2022 Mental Status Question Answer Note LastModified by Organizat ion Details LastModified Time Do you have difficulty concentrating, remembering or making decisions? No [id number] Information not available 05/11/2022 Family History Relationship Description Onset Age of this Age Resolved Age Notes LastModified by Organization Details LastModified Time Mother Diabetes mellitus [id number] Not available 05/11/2022 04:43:02 Mother Benign essential hypertension [id number] Not available 05/11/2022 04:43:02 Father Heart disease [id number] Not available 05/11/2022 04:43:02 Medical History Condition Response NERVE DISEASE N BLINDNESS N RHEUMATIC FEVER N KIDNEY STONES N BLADDER PROBLEMS N MRSA N OTHER # 1 N POLIO N LUNG DISEASE/DISORDER N HISTORY OF DRUG ABUSE N COPD N RADIATION / CHEMOTHERAPY N Other # 2 N BLOOD DISEASES Y EAR OR HEARING PROBLEMS N MUMPS N SHINGLES N BOWEL PROBLEMS N DEPRESSION (INCLUDING POST ) N STROKE/TIA N ULCERS N BENIGN PROSTATIC HYPERPLASIA N MEASLES N HYPOTENSION N MYOCARDIAL INFARCTION N OBESITY N GERD/NAUSEA Y ANEURYSM N URINARY/BLADDER/KIDNEY PROBLEMS N CORONARY ARTERY DISEASE (CAD) N ADDICTION CONCERNS N ENDOMETRIOSIS N Impotence N USE OF BLOOD THINNERS N SKIN PROBLEMS N GASTROINTESTINAL DISORDER N PERIPHERAL VASCULAR DISEASE N MUSCLE,JOINT OR BONE PROBLEMS N GASTROINTESTINAL BLEEDING N BLOOD CLOTS N ASTHMA N CATARACTS N ERECTILE DYSFUNCTION N VARICOSITIES N GI PROBLEMS N Low Testosterone N INFERTILITY N AIDS/HIV N CHEMOTHERAPY / RADIATION N LIVER DISEASE N MALE HYPOGONADISM N HYPERTENSION Y Deficiency N TOURETTE'S N ANXIETY DISORDER N BLOOD TRANSFUSION N ANEMIA/BLOOD DISORDER N CHRONIC EAR INFECTIONS N BRONCHITIS N TUBERCULOSIS N GLAUCOMA N FOOT PROBLEM N DIVERTICULITIS N CHICKENPOX N SLEEP APNEA N INFECTIOUS DISEASE N HEART ARRHYTHMIA N PROSTATE N INSOMNIA N HIGH CHOLESTEROL / HYPERLIPIDEMIA Y HYPERTHYROIDISM N EYE PROBLEMS N EDEMA N CHRONIC PAIN SYNDROME N HYPOTHYROIDISM N CAROTID BLOCKAGE N CONSTIPATION N BACK / NECK PROBLEMS N ATHEROSCLEROSIS N BREAST PROBLEMS N DIALYSIS N ECZEMA N OSTEOPOROSIS N ARTHRITIS N APPENDICITIS N DIABETES, TYPE N BAD TEETH N ENT N HEARTBURN / REFLUX N AUTISM SPECTRUM DISORDER (ASD) N HEPATITIS / LIVER DISEASE N GOUT N SLEEP DISORDER N ALZHEIMER'S DISEASE N Brain Problems N HERPES N DEMENTIA N HEADACHES/MIGRAINES N SEIZURES/EPILEPSY N VASCULAR DISEASE N PACEMAKER N Blood Disorder N DIZZINESS N HEART DISEASE/HEART PROBLEMS Y KIDNEY DISEASE N MULTIPLE SCLEROSIS N CARDIAC ARRHYTHMIA N CANCER: SPECIFY N ATRIAL FIBRILLATION N Gall Stones N PULMONARY EMBOLISM N AUTOIMMUNE DISEASE N Gynecological History Statement/Question Response Date of Last Pap Date of Last Mammogram Date of Last Colonoscopy 11/12/2009 Most Recent Bone Density Obstetrics History GPAL:G 0 P 0 0 0 0 Immunizations Vaccine Type Date Status Note Provider Nam e and Address Organization Details Recorded Time Influenza, high-dose, quadrivalent, PF 3 completed Aodlfo Gutiérrez MD [address] [facility], [facility] [address], [place], [address], [facility] [employer] 12/26/2022 16:52:38 COVID-19, mRNA, LNP-S, PF, 100 mcg/0.5mL dose or 50 mcg/0.25mL dose 1 completed Not Available [facility] 02/12/2023 21:40:06 COVID-19, mRNA, LNP-S, PF, 100 mcg/0.5mL dose or 50 mcg/0.25mL dose 1 completed Not Available [facility] 02/12/2023 21:40:06 influenza, unspecified formulation 8 completed Not Available [facility] 02/12/2023 21:40:06 COVID-19, mRNA, LNP-S, PF, 30 mcg/0.3 mL dose 1 completed Not Available [facility] 02/12/2023 21:40:06 pneumococcal polysaccharide PPV23 2 completed Not Available [facility] 02/12/2023 21:40:06 Influenza, high-dose, quadrivalent, PF 1 completed Not Available [facility] 02/12/2023 21:40:05 Influenza, high-dose, quadrivalent, PF 0 completed Not Available [facility] 02/12/2023 21:40:06 Pneumococcal conjugate PCV 13 0 completed Not Available [facility] 02/12/2023 21:40:06 Influenza, high-dose, trivalent, PF 0 completed Not Available [facility] 02/12/2023 21:40:06 Past Encounters Encounter ID Performer Location Encounter Start Date Encounter Closed Date Diagnosis/Indication Diagnosis SNOMED-CT Code Diagnosis ICD10 Code Diagnosis Note [id number] [facility] [place] [address] [place] [address] y , [place] [address] 09/02/2020 00:00:00 09/02/2020 18:48:26 [id number] [facility] Internal [facility] [place] [address] [place] [address] y , [place] [address] 01/06/2021 00:00:00 01/06/2021 16:16:34 [id number] [facility] Internal [facility] [place] [address] [place] [address] y , [place] [address] 06/09/2021 00:00:00 06/09/2021 11:08:30 [id number] [facility] Internal [facility] [place] [address] [place] [address] y , [place] [address] 01/03/2022 00:00:00 01/03/2022 17:29:36 [id number] [facility] Internal [facility] [place] [address] [place] [address] y , [place] [address] 05/09/2022 00:00:00 05/09/2022 17:33:57 [id number] Adolfo avila MD [facility] Internal [address] y , [place] [address] 12/26/2022 15:48:02 12/26/2022 16:32:00 Screening - NAD [id number] Z13.9 C-scope: Dr. Kennedy n 11/12/09, next 10 years from above date, declined this, no complaints , understand s the risks Mammogram: 10/24/16, [id number] /29/18: Neg, declines PAP: Not doing these, declines any WWE, DEXA: Get this ordered declined She has declined the above testing no complaints 12/26/2022 UTD yearly flu shot 01/06/2021 Get TdapPCV #13 10/21/2019 Get shingles vaccineUTD COVID 19 vaccineCan do RSV vaccine and COVID 19 RTC in 4 months as per her requestDo labsER if any symptoms worsen,she is very agreeable to this plan of care Essential hypertension 81610441 I10 On HCTZ 12.5mg dailyOn metoprolol 100mg dailyDoes wellGet labs Hyperlipidemia 80846472 E78.5 On ASAOn pravastati n 40mg dailyOn vascepa 1gm 2 caps bid, renewed 01/03/2022 Does wellGet labs Gastroesop hageal reflux disease without esophagitis 626491332 K21.9 On pepcidDoes well 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 D69.[address] Meghan Monson well now Hyperglycemia 26879003 R 73.9 Does wellNot on any medsRepeat the labs Heart murmur 25117460 R0 1.1 ECHO 03/09/2020 ; Moderate MRNo complaints at this timeDeclin es any cardiology referrals Administra tion of influenza vaccine 03961543 Z23 [id number] Adolfo avila MD [facility] [address] [place] [address] [place] [address] 01/11/2023 10:51:26 01/11/2023 11:27:33 Skin lesion 35181533 L98.9 OV 01/11/2023 :Feels that this could be a spider biteWill start on keflex, notify if not better, then may need to see Ramses carvalhoMandy states that she is UTD on the Tdap in 2017 [id number] Adolfo avila MD [facility] [address] [place] [address] [place] [address] 07/10/2023 15:36:07 07/10/2023 16:26:31 Screening - NAD 212378439 Z13.9 C-scope: Dr. Brent lee 11/12/09, next 10 years from above date, declined this, no complaints , understand s the risks Mammogram: 10/24/16, [id number] /29/18: Neg, declines PAP: Not doing these, declines any WWE DEXA: Get this ordered declined She has declined the above testing no complaints 12/26/2022 UTD yearly flu shot 01/06/2021 Get TdapPCV #13 10/21/2019 ,.PPV #23 06/09/2021 Get shingles vaccineUTD COVID 19 vaccineCan do RSV vaccine and COVID 19 RTC in 4 months as per her requestDo labsER if any symptoms worsen,she is very agreeable to this plan of care Essential hypertension 93552606 I10 On HCTZ 12.5mg dailyNot on metoprolol 100mg dailyDoes wellGet labs Hyperlipidemia 04708334 E78.5 On ASAOn pravastati n 40mg dailyOn vascepa 1gm 2 caps bidDoes wellGet labs Gastroesop hageal reflux disease without esophagitis 610547089 K21.9 On pepcidDoes well Thrombocyt openic disorder 455321538 D69.6 Dr Lacey 04/10/2023 , next in 6 months Does well now Hyperglycemia 88065502 R 73.9 Does wellNot on any meds, declined 07/10/2023 , more diet controlRep eat the labs Heart murmur 22268282 R0 1.1 ECHO 03/09/2020 ; Moderate MRNo complaints at this timeDeclin es any cardiology referrals Hypercalcemia 78244366 E 83.52 Repeat the BMP, and iPTH will need to see nephrology Hypothyroidism 24221497 E03.9 S/p thyroid surgery in 2011, FT4 is low normalWill get US thyroid Adult heal th examination 543675730 Z00.00 Screening for disorder 110622844 Z13.9 [id number] Zeb Eng DPM [facility] [address] [address] 07/27/2023 15:06:27 10/17/2023 18:02:16 Onychomycosis of toenails 314519400 B35.1 Congenital pes planus 23 148725 Q66.51 Edema of l ower extremity 136428777 R60.0 [id number] Zeb Eng DPM [facility] [address] [address] 11/02/2023 14:43:44 11/03/2023 09:45:09 Onychomycosis of toenails 427440494 B35.1 [id number] Adolfo avila MD [facility] [address] [facility] [place] [place] [address] 11/29/2023 14:58:14 11/29/2023 15:59:44 Essential hypertension 35391676 I10 On HCTZ 12.5mg dailyOn metoprolol 100mg dailyDoes [facility] - NAD 26952127 3 Z13.9 C-scope: Dr. Brent lee 11/12/09, next 10 years from above date, declined this, no complaints , understand s the risks Mammogram: 10/24/16, [id number] /29/18: Neg, amqaboep13: Do SBE, no complaints PAP: Not doing these, declines any WWE DEXA: Get this ordered declined She has declined the above testing no complaints 12/26/2022 UTD yearly flu shot 01/06/2021 Get TdapPCV #13 10/21/2019 ,.PPV #23 06/09/2021 Get shingles vaccineUTD COVID 19 vaccineCan do RSV vaccine and COVID 19 RTC in 4 months as per her requestDo labsER if any symptoms worsen,she is very agreeable to this plan of care Hyperlipidemia 58031768 E78.5 On ASAOn pravastati n 40mg dailyNot on vascepa 1gm 2 caps bidDoes wellGet labs Gastroesop hageal reflux disease without esophagitis 375979903 K21.9 On pepcidDoereilly well Thrombocyt openic disorder 468526855 D69.6 Dr Gale well now Hyperglycemia 21052217 R 73.9 Does wellNot on any medsRepeat the labs Heart murmur 79867589 R0 1.1 ECHO 03/09/2020 ; Moderate MRNo complaints at this timeDeclin es any cardiology referrals Hypercalcemia 33477952 E 83.52 Repeat the BMP, and iPTH will need to see nephrology Hypothyroidism 67344247 E03.9 S/p thyroid surgery in 2011, FT4 is low normalWill get US thyroid Health Concerns Section Related Observation LastModified by Organization Detai ls LastModified Time None Recorded Concern Status LastModified by Organization Details LastModified Time None Recorded Advance Directives Directive Y: POLST done today n file i n chart Payers Encounter Date Sequence Insurance Name Policy Number Policy Franklin Covered Member ID Franklin Member ID Guarantor Name 01/11/2023 1 [employer] (MEDICARE REPLACEMENT PPO) [id number] Argentinarosa Meza [id number] Argentina Meza 07/10/2023 1 [employer] (MEDICARE REPLACEMENT PPO) [id number] Argentina Meza [id number] Argentina Meza 07/27/2023 1 [employer] (MEDICARE REPLACEMENT PPO) [id number] Argentina Meza [id number] 1 Argentina Meza 11/02/2023 1 [employer] (MEDICARE REPLACEMENT PPO) [id number] Argentina Meza [id number] 1 Argentina Meza 11/29/2023 1 [employer] (MEDICARE REPLACEMENT PPO) [id number] Argentina Meza [id number] 1 Argentina Meza Notes Date Note Type Note Provider Name and Address Organization Details Recorded Time 01/11/2023 text/html OV 10/17/17:Here to establish carePast Hx:HTNGERDReviewed social family and surgical historyHere for med review and get labs OV 11/01/17:Here for her routine aptShe has not done any recent labsShe feels that she is doing well at this time OV 10/29/18:Here for her routine aptFeels wellNo recent labs OV 11/14/18:Here with ACVC/o L shoulder pain, was putting up her mothers casserole and felt pain in the L shoulderPain is in the front, unable to lift her arm, no weakness in the thread reeler, pain is intermittentShe is R HDno N/T in the L arm OV 11/28/18:Here for her shoulder pain, feels much betterBut she does have some LBP now, states that she has been told she has scoliosisNo N/T or weakness in the legsNo B/B incontinence OV 04/29/2019:Here for her routine apt and MWV Does feel wellNo new labs since 11/17/2018 OV 10/21/2019:Here for her routine wellness aptShe did do the labsShe is feeling very wellShe does have some LE edema OV 02/24/2020:Here for her routine aptShe feels wellSmilagro did do the labs OV 09/02/2020:Here for her routine f/u aptShe is doing very wellShe did do the labsStates that now she is very active OV 01/06/2021:Here for her routine aptShe is doing wellShe states taht she did have labs done but no report yet OV 06/09/2021:Here for her routine apt and wellness visitShe is wellLabs done on 05/29/2021he is here for her MWV OV 01/03/2022:Here for her f/u apt, she is doing well, she is getting over a URI, no acute complaints today OV 05/09/2022:Here for her f/u apt, she did do the labs, feels well today OV : Here for her f/u apt, she does well OV 01/11/2023: ACV: Noted an insect or spider bite, now has swelling and some pain, no fevers or chills Adolfo Gutiérrez MD [address] [place] [address], [facility] [address], [place], [address], [facility] [employer] 01/11/2023 11:27:39 07/10/2023 text/html OV 10/17/17:Here to establish carePast Hx:HTNGERDReviewed social family and surgical historyHere for med review and get labs OV 11/01/17:Here for her routine aptShe has not done any recent labsShe feels that she is doing well at this time OV 10/29/18:Here for her routine aptFeels wellNo recent labs OV 11/14/18:Here with ACVC/o L shoulder pain, was putting up her mothers casserole and felt pain in the L shoulderPain is in the front, unable to lift her arm, no weakness in the thread reeler, pain is intermittentShe is R HDno N/T in the L arm OV 11/28/18:Here for her shoulder pain, feels much betterBut she does have some LBP now, states that she has been told she has scoliosisNo N/T or weakness in the legsNo B/B incontinence OV 04/29/2019:Here for her routine apt and MWV Does feel wellNo new labs since 11/17/2018 OV 10/21/2019:Here for her routine wellness aptShe did do the labsShe is feeling very wellShe does have some LE edema OV 02/24/2020:Here for her routine aptShe feels wellShe did do the labs OV 09/02/2020:Here for her routine f/u aptShe is doing very wellShe did do the labsStates that now she is very active OV 01/06/2021:Here for her routine aptShe is doing wellShe states taht she did have labs done but no report yet OV 06/09/2021:Here for her routine apt and wellness visitShe is wellLabs done on 05/29/2021he is here for her MWV OV 01/03/2022:Here for her f/u apt, she is doing well, she is getting over a URI, no acute complaints today OV 05/09/2022:Here for her f/u apt, she did do the labs, feels well today OV : Here for her f/u apt, she does well OV 01/11/2023: ACV: Noted an insect or spider bite, now has swelling and some pain, no fevers or chills 07/10/2023: Here for her f/u apt, she is also here for her MWV, is doing well Adolfo Gutiérrez MD [address], [place], [address], [employer] 07/20/2023 09:02:36 07/27/2023 text/html Pt RTC for NIDDM foot care. Nails long and dystrophic cooper. Unable to self-tx. Zeb Eng DPM [address], [address], [place], [address], [employer] 07/27/2023 16:06:44 11/02/2023 text/html Pt RTC for cont c/o thick, dystrophic, mycotic nails cooper. Improving noticeably. Pt is satisfied and requests refill of her medication. To cont applying Norman's and taking Diflucan as Rx'ed once/wk. Zeb Eng, DPM [address] [facility], [address], [place], [address], [facility] 11/03/2023 09:24:20 11/29/2023 text/html OV 10/17/17:Here to establish carePast Hx:HTNGERDReviewed social family and surgical historyHere for med review and get labs OV 11/01/17:Here for her routine aptShe has not done any recent labsShe feels that she is doing well at this time OV 10/29/18:Here for her routine aptFeels wellNo recent labs OV 11/14/18:Here with ACVC/o L shoulder pain, was putting up her mothers casserole and felt pain in the L shoulderPain is in the front, unable to lift her arm, no weakness in the thread reeler, pain is intermittentShe is R HDno N/T in the L arm OV 11/28/18:Here for her shoulder pain, feels much betterBut she does have some LBP now, states that she has been told she has scoliosisNo N/T or weakness in the legsNo B/B incontinence OV 04/29/2019:Here for her routine apt and MWV Does feel wellNo new labs since 11/17/2018 OV 10/21/2019:Here for her routine wellness aptShe did do the labsShe is feeling very wellShe does have some LE edema OV 02/24/2020:Here for her routine aptShe feels Lorenzo did do the labs OV 09/02/2020:Here for her routine f/u aptShe is doing very wellShe did do the labsStates that now she is very active OV 01/06/2021:Here for her routine aptShe is doing wellShe states taht she did have labs done but no report yet OV 06/09/2021:Here for her routine apt and wellness visitShe is wellLabs done on 05/29/2021he is here for her MWV OV 01/03/2022:Here for her f/u apt, she is doing well, she is getting over a URI, no acute complaints today OV 05/09/2022:Here for her f/u apt, she did do the labs, feels well today OV : Here for her f/u apt, she does well OV 01/11/2023: ACV: Noted an insect or spider bite, now has swelling and some pain, no fevers or chills 07/10/2023: Here for her f/u apt, she is also here for her MWV, is doing well OV 11/29/2023: Here for her f/u apt, she is doing well today Adolfo Gutiérrez MD [address] [place] [address], [place] [address], [place], [address], [facility] 12/11/2023 18:57:00 OBGyn Episode No OBEpisode recorded.
[2024-05-17 11:49] LABS: Percent Iron Saturation 31 % (20-50)
== END 2024-05-17 10:46 | disposition home or self-care (01) ==
LOC: ANHLAB 10:46
PROVIDERS: PCP Internal Medicine; Visit Provider Internal Medicine Hematology & Oncology
DX: D61.818 Other pancytopenia (principal); D50.9 Iron deficiency anemia, unspecified
CPT/HCPCS: 36415; 80053; 82728; 83540; 83550; 85025; 85055

== ENCOUNTER 2024-06-24 13:44 | Outpatient (CLI) | payer MEDICARE, SELFPAY ==
--- NOTE | ~2024-06-24 | US_ITS ---
EXAMINATION: US thyroid DATE: 06/24/2024 14:34 INDICATION: Hypothyroidism TECHNIQUE: Multiple ultrasound images of the thyroid were obtained. COMPARISON: None. If prior imaging does become available, comparison will be performed. FINDINGS: The right thyroid lobe measures 3.0 x 0.9 x 1.2, cm, asymmetrically smaller than the left lobe of the thyroid gland. The left thyroid lobe measures 2.6 x 6.2 x 3.9 cm. Within the left lobe of the thyroid gland is a 23 x 16 x 20 mm nodule: Composition -mixed cystic and solid (1) Echogenicity -hyperechoic or isoechoic (1) Shape - wider than tall Margin - smooth Echogenic foci - none. = TR2 not suspicious. The isthmus measures 0.3cm in anterior to posterior dimension. There is coarse echotexture and heterogeneous echogenicity throughout the remainder of the thyroid gl and. No additional discrete nodules identified. Normal vascular flow is present. IMPRESSION: TR2 nodule in the left lobe of the thyroid gland measuring 23 mm in greatest dimension. This nodule is not sonographically suspicious and no FNA is recommended Follow-up may be performed. Considerable size asymmetry between the right and left lobes of the thyroid gland (as detailed above) for which prior partial thyroidectomy is suspected. Reviewed, dictated and finalized at location A. IMPRESSION: TR2 nodule in the left lobe of the thyroid gland measuring 23 mm in greatest di mension. This nodule is not sonographically suspicious and no FNA is recommended Follow-up may be performed. Considerable size asymmetry between the right and left lobes of the thyroid gla nd (as detailed above) for which prior partial thyroidectomy is suspected.
--- OUTSIDE RECORDS SUMMARY | 2024-06-24 15:12 | XMS_ITS | Clinical Summary ---
Author Organization [facility] Address [address] [place] [address] Care Team Providers Care Puddler Helper Name Role Phone Adolfo Gutiérrez MD Primary [...] mg by mouth daily . Active C,E,zinc,copper 11/oookb7h/lut (OCUVITE ADULT 50 PLUS ORAL) Take by mouth. Active cyanocobalamin 1,000 mcg Tablet Take 1,000 mcg by mouth daily. Active mv-mn-folic ac-vit K-herb 289 (ALIVE ONCE DAILY WOMEN 50 PLUS) 800-100 mcg Tablet Alive Once Daily Women 50 Plus 1 tablet daily Active kfej-DH-qdl-epa -LRK-GNKF-dq-mv 1.5 mg iron- 8.73 mg capsule,IR & [...] Encounters Date Type Department Care Team Description 05/29/2024 External Device Data STL ABSTRACTION Provider, Abstract 05/23/2024 11:30 AM CDT Office Visit [facility] Oncology and Hematology [facility] [address] [place] [address] Lawrence Lacey MD Chronic anemia (Primary Dx) 05/20/2024 Orders Only [facility] Oncology and [facility] [address] [place] [address] Lawrence Lacey MD 05/18/2024 External Device Data STL ABSTRACTION Provider, Abstract 05/17/2024 External Device Data STL ABSTRACTION Provider, Abstract 05/15/2024 External Device Data STL ABSTRACTION Provider, [...] on file Legal Sex Female 3:35 PM ECHOCARDIOGRAPH TECHNICIAN Gender Identity Not on file Sexual Orientation Not on file Last Filed Vital Signs Vital Sign Reading Time Taken Comments Blood Pressure 111/64 05/23/2024 11:14 AM CDT Pulse 70 05/23/2024 11:14 AM CDT Temperature 36.2 C (97.2 F) 05/23/2024 11:14 AM CDT Respiratory Rate 15 05/23/2024 11:14 AM CDT Oxygen Saturation 96% 05/23/2024 11:14 AM CDT Inhaled Oxygen Concentration - - Weight 85.5 kg (188 lb 6.4 oz) 05/23/2024 11:14 AM CDT Height 170.2 cm (5' 7 ) 02/06/2019 1:40 PM ECHOCARDIOGRAPH TECHNICIAN Body Mass Index 29.51 02/06/2019 1:40 PM ECHOCARDIOGRAPH TECHNICIAN Plan of Treatment Upcoming Encounters Date Type Department Care Team (Late st Contact Info) Description 11/29/2024 11:00 AM CDT Office Visit [facility] Oncology and Hematology - [place] [address] [facility] [address] [place] [address] Lawrence Lacey MD [address] [facility] [address] [place] [address] Health Maintenance Due Date Last Done Comments DTAP/TDAP/TD VACCINES (1 - Tdap) 1967 ZOSTER VACCINE (1 of 2) 1998 OSTEOPOROSIS SCREENING 2013 RSV VACCINE (60+ or ) (1 - 1-dose 75+ series) 2023 INFLUENZA VACCINE (#1) 2023 3, 01/06/2021, 02/24/2020, Additional history exists Medicare [place]) Preventative Visit/Annual Wellness Visit 03/13/2024 COLORECTAL SCREENING Discontinued 11/12/2009 Colorectal Cancer Screening Discontinued PNEUMOCOCCAL VACCINE 50+ YEARS Completed 06/09/2021 , 10/21/2019 FIT-DNA Q 3 years Discontinued FIT/FOBT Q 1 year Discontinued Flex Sig/CT Colonography Q 5 years Discontinued Procedures Procedure Name Priority Date/Time Associated Diagnosis Comments COMPREHENSIVE METABOLIC PANEL Routine 05/17/2024 11:36 AM ECHOCARDIOGRAPH TECHNICIAN from Last 3 Months Results * COMPREHENSIVE METABOLIC PANEL (05/17/2024 11:36 AM ECHOCARDIOGRAPH TECHNICIAN) Blood us Lawrence Lacey MD CHEMISTRY ORDERABLES Final Resu lt from Last 3 Months Insurance [employer] CHO[employer] PPO MCR Member Subscriber Plan / Payer (Ef fective 2020-Present) Name:Emerald Mezarosa Soto Relation to Subscriber:Self Name:Argentina Meza Payer ID:Not on file Type:PPO Address: [place] [id number] [employer] CHOICE PPO MCR Care Teams Puddler Helper Relationship Specialty Start Date End Date Adolfo Gutiérrez MD PCP - General Internal Medicine 04/11/18
--- OUTSIDE RECORDS SUMMARY | 2024-06-24 15:12 | XMS_ITS | Data Portability ---
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 Lab HbA1c (hemoglob in A1c), blood 2023 024 [facility], [address], [place], [address], 5 14:14:10 microalbu min, urine 2023 024 [facility], [address], [place], [address], 5 14:14:10 PTH (parathyr oid hormone), intact, serum or plasma 2023 024 [email or web address], [address], [place], [address], 5 14:14:12 BMP, serum or plasma 2023 024 [facility], [address], [place], [address], 5 08:10:59 CMP, serum or plasma 2023 024 [facility], [address], [place], [address], 5 14:14:10 T4, free, serum 2023 024 [facility], [address], [place], [address], 5 14:14:11 CBC w/ auto diff 2023 024 [facility], [address], [place], [address], 5 14:14:11 TSH, serum or plasma 2023 024 [facility], [address], [place], [address], 5 14:14:11 lipid panel, serum 2023 024 [facility], [address], [place], [address], 5 14:14:11 PTH (parathyr oid hormone), intact, serum or plasma 2023 024 [facility], [address], [place], [address], 4 09:44:57 BMP, serum or plasma 2023 024 [facility], [address], [place], [address], 4 18:03:25 CMP, serum or plasma 2023 024 [facility], [address], [place], [address], 4 17:51:52 T4, free, serum 2023 024 [facility], [address], [place], [address], 4 14:11:39 CBC w/ auto diff 2023 024 [facility], [address], [place], [address], 4 14:11:39 TSH, serum or plasma 2023 [place] [address] [facility], [address], [place], [address], 14:11:39 lipid panel, serum 2023 024 [place] [address] [facility], [address], [place], [address], 14:11:39 HbA1c (hemoglob in A1c), blood 2023 [place] [address] [facility], [address], [place], [address], 14:11:38 microalbu min, urine 2023 024 [place] [address] [facility], [address], [place], [address], 14:11:38 Referral podiatris t referral 2023 024 [email or web address] Claus Moncada DPM, [address] [facility], [address], [place], [address], 5 08:37:10 podiatris t referral 2023 024 Claus Moncada DPM, [address] [facility], [address], [place], [address], 4 14:11:49 Procedures None recorded. Surgeries None recorded. Imaging US, thyroid 2023 024 [email or web address] [facility], [address] [place] [address] Dr, [place], [address], 5 12:59:25 US, thyroid 2023 024 [facility] , [place], [address], 12:55:26 Medication Orders Diflucan 150 mg tablet 2023 [email or web address]), [address], [place], [address], 4 12:33:00 Diflucan 150 mg tablet 2023 024 [id number], [address], [place], [place], [id number], 4 16:06:44 Vascepa 1 gram capsule [address] [facility] ([facility]), [address], [place], [address], 4 15:59:59 Keflex 250 mg capsule 2022 023 [id number], [address], [place], [place], [id number], 4 15:46:12 Patient TargetsNo targets recorded. Patient Instructions Encounter Date Encounter Id Patient Instructions Last Modified By Organization Details Last Modified Time 07/10/2023 [id number] dementia rating scale-2* [email or web address] Not available 07/20/2023 09:00:11 Timed Up and Go test (TUG)* [email or web address] 2 Not available 07/20/2023 09:00:11 alcohol misuse* [email or web address] Not available 07/20/2023 12:54:17 depression screening* [email or web address] 2 Not available 07/20/2023 09:00:12 multi-dimensiona l health assessment questionnaire* [email or web address] 2 Not available 07/20/2023 09:00:11 advance directiv es: care instructions [email or web address] 2 Not available 07/20/2023 09:00:11 advance care planning: care instructions [email or web address] 2 Not available 07/20/2023 09:00:11 [place] Advance Directives [email or web address] 2 Not available 07/20/2023 09:00:11 Personalized a lt Plan and Screening Recommendations Advance Directives - [...] I have no recommendations Depression Screening: Negative [email or web address] Not available 07/10/2023 17:21:17 Reason for Referral Financial Institution President Referral for Hype rglycemia Referring Physician: Adolfo Gutiérrez [facility], Encounter Date: 07/10/2023 Financial Institution President Referral for Hype rglycemia Referring Physician: Adolfo Gutiérrez [facility], Encounter Date: 11/29/2023 Results Created Date Observation Date Name Description Value Unit Range Abnormal Flag Note LastModifiedBy Organization Detail LastModifiedTime Result Notes None recorded. Problems Name Problem SNOMED Code Status Onset Date Resolution Date Notes Provider Name and Address Organization Details Recorded Time Hyperlipidemi a 80383592 Active 2022 Not Available [facility] 3 12:58:17 Gastroesophag eal reflux disease without esophagitis 413371322 Active 2022 Not Available [facility] 3 12:58:17 Thrombocytope kt disorder 989407906 Active 2022 Not Available [facility] 3 12:58:17 Hyperglycemia 24298186 Active 2022 Not Available [facility] 3 12:58:17 Heart murmur 18216497 Active 2022 Not Available [facility] 3 12:58:17 Thyroid stimulating hormone level above reference range 665003982 Active 2022 Not Available [facility] 3 12:58:17 Skin lesion 70631827 Active 2022 Not Available [facility] 3 12:58:17 Hypercalcemia 97603096 Active 2023 Adolfo avila MD [address], [address], [place], [address] , [email or web address] 4 15:59:04 Hypothyroidis m 84142486 Active 2023 Adolfo avila MD [address], [address], [place], [address] , [email or web address] 4 16:17:37 Onychomycosis of toenails 429694914 Active 2023 TONY Lindo null, [email or web address] 4 15:52:49 Edema of lower extremity 658460110 Active 2023 Zeb Eng DPM [address], [address], [place], [address] , [email or web address] 4 16:06:16 Congenital pes planus 61782905 Active 2023 Zeb Eng DPM [address], [address], [place], [address] , [facility] 4 16:06:36 Abnormal urine 827752644 Active Not Available [facility] 3 12:58:17 Thyroid nodule 187026602 Active Not Available [facility] 3 12:58:17 Furuncle 157267270 Active Not Available [facility] 3 12:58:17 Essential hypertension 21377127 Active Not Available [facility] 3 12:58:17 Problem Notes None recorded. Procedures Surgical History Date Name Laterality Status Provider Name and Address Organization Details Recorded Time 11/02/19 24 Nail Debridement completed Zeb Egn DPM [address], [address], [place], [address], [email or web address] 11/03/2023 09:24:16 07/27/19 24 Nail Debridement completed Zeb Eng DPM [address], [address], [place], [address], [email or web address] 07/27/2023 16:05:37 07/10/19 24 Medicare Wellness CPT Code, subsequent completed Jani Yusuf LPN [email or web address] 07/10/2023 16:49:06 07/10/19 24 Advanced Care Planning completed Jani Yusuf LPN [email or web address] 07/10/2023 17:09:59 11/13/19 10 Date of Last Colonoscopy completed Not Available [facility] 05/11/2022 04:42:50 Hysterectomy completed Not Available [facility] 05/11/2022 04:42:57 Thyroid Surgery completed Not Available [facility] 05/11/2022 04:42:57 Imaging Results None recorded. Procedure Notes None recorded. Medical Equipment None Reported. Allergies Allergen ID Allergen Name Allergen Category Reaction Reaction Severity Criticality Documentation Date Start Date Code Code System Note Provider Name and Address Organization Details Recorded Time 8991 Local anestheti c (substanc e) medicatio n Not available Not available Not available 05/11/2022 55685 7003 SNOMED Not Available [facility] 3 05:06:51 8992 lidocaine medicatio n Not available Not available Not available 05/11/2022 6387 RxNorm Not Available [facility] 3 05:06:51 Medications Name Sig [...] e 25 mg tablet 04/[address] Beaulieu stopped Not Available Not Available Not Available Pepcid [...] Available Not Available Not Available [employer] 1 tablets daily 06/09 completed Not Available Not Available Not Available Fluzone High-Dose 5323-3570 (PF) 180 mcg/0.5 mL intramusc ular syringe [...] Updated DateTime 3 167.64 cm 31 kg/m2 07406.7 4 g 97.6 [degF] 72 /min 98 % 98 % 126 mm[Hg] 74 mm[Hg] Mihaela Fernandes MA [facility] Nursing Home Quality [facility] 3 11:00:27 Date Recorded Body height Body mass index (BMI) Body weight Body temperature Heart rate Systolic blood pressure Diastolic blood pressure Provider Name and Address Organization Details Last Updated DateTime 4 167.64 cm 29.7 kg/m2 68308 g 97.9 [degF] 78 /min 122 mm[Hg] 60 mm[Hg] Phoebe Bustamante [facility] Nursing Home Quality [facility] 4 15:48:28 Date Recorded Pain severity - 0-10 verbal numeric rating [Score] - Reported Provider Name and Address Organization Details Last Updated DateTime 07/10/2023 0 Jani Yusuf LPN [facility] Nursing Home Quality [facility] 07/10/2023 16:49:13 Date Recorded Body height Body mass index (BMI) Body weight Oxygen saturation Oxygen saturation in Arterial blood by Pulse oximetry Body temperature Heart rate Systolic blood pressure Diastolic blood pressure Provider Name and Address Organization Details Last Updated DateTime 4 167.64 cm 29.7 kg/m2 47140 g 98 % 98 % 97.9 [degF] 78 /min 131 mm[Hg] 71 mm[Hg] Bhavik Souza [facility] Nursing Home Quality [facility] 4 15:36:14 Date Recorded Body height Body mass index (BMI) Body weight Oxygen saturation Oxygen saturation in Arterial blood by Pulse oximetry Body temperature Heart rate Provider Name and Address Organization Details Last Updated DateTime 4 167.64 cm 29.7 kg/m2 73890 g 96 % 96 % 98.4 [degF] 82 /min Bhavik Souza [facility] Nursing Home Quality [facility] 4 15:58:10 Date Recorded Body height Body mass index (BMI) Body weight Body temperature Heart rate Respiratory rate Oxygen saturation Oxygen saturation in Arterial blood by Pulse oximetry Pain severity - 0-10 verbal numeric rating [Score] - Reported Systolic blood pressure Diastolic blood pressure Provider Name and Address Organization Details Last Updated DateTime 4 170.18 cm 29.1 kg/m2 05046.1 8 g 97.7 [degF] 74 /min 18 /min 95 % 95 % 3 128 mm[Hg] 72 mm[Hg] Jani Yusuf LPN [place] [facility] [address] [employer] 4 15:05:39 Social History Question Answer Notes LastModified by Organization Details LastModified Time Tobacco Smoking Status Former Smoker Not Available [facility] 05/11/2022 04:29:03 Do You Have An Advance Directive? Yes POLST Done Today N File In Chart [email or web address] Information not available 07/10/2023 What Is Your Level Of Alcohol Consumption? None MIGRATION.650 [id number] Information not available 05/11/2022 Are You Blind Or Do You Have Difficulty Seeing? No Wears Glasses Information not available 07/10/2023 What Is Your Level Of Caffeine Consumption? Occasional MIGRATION.532 [id number] Information not available 05/11/2022 What Is Your Code Status? DNI CPR With No Intibation Or Mechanical Feeding Information not available 07/10/2023 In The 14 Days Before Symptom Onset, Have You Had Close Contact With A Laboratory-conf irmed COVID-19 While That Case Was Ill? No MIGRATION.278 [id number] Information not available 05/11/2022 In The 14 Days Before Symptom Onset, Have You Had Close Contact With A Person Who Is Under Investigation For COVID-19 While That Person Was Ill? No MIGRATION.854 3180510 Information not available 05/11/2022 Are You Currently Employed? No [email or web address] Information not available 07/10/2023 Are You Deaf Or Do You Have Serious Difficulty Hearing? No MIGRATION.848 1071632 Information not available 05/11/2022 What Type Of Diet Are You Following? REGULAR MIGRATION.214 2167960 Information not available 05/11/2022 What Is The Highest Grade Or Level Of School You Have Completed Or The Highest Degree You Have Received? [id number] MIGRATION.282 0020151 Information not available 05/11/2022 What Is Your Occupation? Retired MIGRATION.236 [id number] Information not available 05/11/2022 How Many Days Of Moderate To Strenuous Exercise, Like A Brisk Walk, Did You Do In The Last 7 Days? 3 [email or web address] Information not available 07/10/2023 Have There Been Any Changes To Your Family Or Social Situation? No MIGRATION.617 2066243 Information not available 05/11/2022 What Is The Fluoride Status Of Your Home? Unknown MIGRATION.375 1413888 Information not available 05/11/2022 When Did You Quit Smoking? 16+yearssincelastc igarette [email or web address] Information not available 07/10/2023 Are There Any Guns Present In Your Home? No MIGRATION.642 1262310 Information not available 05/11/2022 Do You Use Insect Repellent Routinely? No MIGRATION.548 [id number] Information not available 05/11/2022 Where Do You Live? [place]House MIGRATION.932 [id number] Information not available 05/11/2022 Advance Directive- Providers Has Reviewed Directive And Consents To Follow Them (insert Provider Name With Any Objectives In Notes Field) Yes POLST FORM [email or web address] Information not available 07/10/2023 Guns Present In The Home? No [email or web address] Information not available 07/10/2023 Are You Able To Care For Yourself? Yes Information not available 07/10/2023 Are You Blind Or Do Yo Have Difficulty Seeing? No Wears Glasses [email or web address] Information not available 07/10/2023 Are You Deaf Or Do You Have Serious Difficulty Hearing? No [email or web address] Information not available 07/10/2023 General Stress Level? Low [email or web address] Information not available 07/10/2023 Live Alone Of With Others? Alone [email or web address] Information not available 07/10/2023 Do You Have A Medical Power Of General Manager Food? No Inforamtion Given Today [email or web address] Information not available 07/10/2023 What Was The Date Of Your Most Recent Tobacco Screening? 11/02/2023 [email or web address] Information not available 11/02/2023 How Many Children Do You Have? 2 [email or web address] Information not available 07/10/2023 Do You Have Any Pets? Yes 3 Cats [email or web address] Information not available 07/10/2023 What Is Your Relationship Status? MIGRATION.763 [id number] Information not available 05/11/2022 Do You Use Your Seat Belt Or Car Seat Routinely? Yes MIGRATION.695 [id number] Information not available 05/11/2022 Do You Have Smoke And Carbon Monoxide Detectors In Your Home? Yes MIGRATION.961 [id number] Information not available 05/11/2022 At What Age Did You Start Smoking Tobacco? -1 [email or web address] Information not available 07/10/2023 Are You Passively Exposed To Smoke? No MIGRATION.602 8180974 Information not available 05/11/2022 Are There Any Smokers In Your House? No MIGRATION.062 5621535 Information not available 05/11/2022 What Types Of Sporting Activities Do You Participate In? None [email or web address] Information not available 07/10/2023 Do You Feel Stressed (tense, Restless, Nervous, Or Anxious, Or Unable To Sleep At Night)? [id number] MIGRATION.019 8607934 Information not available 05/11/2022 Do You Use Any Illicit Or Recreational Drugs? No MIGRATION.077 6887334 Information not available 05/11/2022 Do You Use Sunscreen Routinely? No MIGRATION.959 4514577 Information not available 05/11/2022 Has Tobacco Cessation Counseling Been Provided? No MIGRATION.573 5779869 Information not available 05/11/2022 How Many Years Have You Smoked Tobacco? 30 [email or web address] Information not available 07/10/2023 Have You Recently Traveled Abroad? No MIGRATION.564 8649569 Information not available 05/11/2022 Do You Have Any Dietary Restrictions? No MIGRATION.747 [id number] Information not available 05/11/2022 Do You Or Have You Ever Used Any Other Forms Of Tobacco Or Nicotine? No MIGRATION.263 6358728 Information not available 05/11/2022 Sex: Female Functional Status Question Answer Note LastModified by Organizat ion Details LastModified Time Do you have difficulty walking or climbing stairs? No MIGRATION.71838 61306 Information not available 05/11/2022 Do you have transportation difficulties? No MIGRATION.61637 32502 Information not available 05/11/2022 Are you able to walk? YESWOREST MIGRATION.61262 17442 Information not available 05/11/2022 Do you have difficulty doing errands alone? No MIGRATION.13514 84809 Information not available 05/11/2022 Are you able to care for yourself? Yes MIGRATION.38360 48340 Information not available 05/11/2022 Do you have difficulty dressing or bathing? No MIGRATION.44470 97960 Information not available 05/11/2022 What is your exercise level? Occasional active lifestyle MIGRATION.24713 72638 Information not available 05/11/2022 Mental Status Question Answer Note LastModified by Organizat ion Details LastModified Time Do you have difficulty concentrating, remembering or making decisions? No MIGRATION.116386995 6 Information not available 05/11/2022 Family History Relationship Description Onset Age of this Age Resolved Age Notes LastModified by Organization Details LastModified Time Mother Diabetes mellitus MIGRATION.771 [id number] Not available 05/11/2022 04:43:02 Mother Benign essential hypertension MIGRATION.441 [id number] Not available 05/11/2022 04:43:02 Father Heart disease MIGRATION.565 [id number] Not available 05/11/2022 04:43:02 Medical History Condition Response NERVE DISEASE N BLINDNESS N RHEUMATIC FEVER N KIDNEY STONES N BLADDER PROBLEMS N MRSA N OTHER # 1 N POLIO N LUNG DISEASE/DISORDER N HISTORY OF DRUG ABUSE N RADIATION / CHEMOTHERAPY N COPD N Other # 2 N BLOOD DISEASES [...] Time Influenza, high-dose, quadrivalent, PF 3 completed Adolfo Gutiérrez MD [address] [facility] [facility] [address], [place], [address], [facility] 12/26/2022 16:52:38 COVID-19, mRNA, LNP-S, PF, 100 mcg/0.5mL dose or 50 mcg/0.25mL dose 1 completed Not Available [facility] 02/12/2023 21:40:06 COVID-19, mRNA, LNP-S, PF, 100 mcg/0.5mL dose or 50 mcg/0.25mL dose 1 completed Not Available [facility] 02/12/2023 21:40:06 influenza, unspecified formulation 8 completed Not Available [facility] 02/12/2023 21:40:06 COVID-19, mRNA, LNP-S, PF, 30 mcg/0.3 mL dose 1 completed Not Available [facility] 02/12/2023 21:40:06 pneumococcal polysaccharide PPV23 2 completed Not Available [facility] 02/12/2023 21:40:06 Influenza, high-dose, quadrivalent, PF 1 completed Not Available [facility] 02/12/2023 21:40:05 Influenza, high-dose, quadrivalent, PF 0 completed Not Available [facility] 02/12/2023 21:40:06 Pneumococcal conjugate PCV 13 0 completed Not Available [facility] 02/12/2023 21:40:06 Influenza, high-dose, trivalent, PF 0 completed Not Available [facility] 02/12/2023 21:40:06 Past Encounters Encounter ID Performer Location Encounter Start Date Encounter Closed Date Diagnosis/Indication Diagnosis SNOMED-CT Code Diagnosis ICD10 Code Diagnosis Note [id number] [facility] [place] [address] [place] [address] y , [place] [id number] 09/02/2020 00:00:00 09/02/2020 18:48:26 [id number] [facility] [place] [address] [place] [address] y , [place] [id number] 01/06/2021 00:00:00 01/06/2021 16:16:34 [id number] [facility] [place] [address] [place] [address] y , [place] [id number] 06/09/2021 00:00:00 06/09/2021 11:08:30 [id number] [facility] [place] [address] [place] [address] y , [place] [id number] 01/03/2022 00:00:00 01/03/2022 17:29:36 [id number] [facility] [place] [address] [place] [address] [place] [id number] 05/09/2022 00:00:00 05/09/2022 17:33:57 [id number] Adolfo avila MD [facility] [place] [address] [place] [address] [place] [id number] 12/26/2022 15:48:02 12/26/2022 16:32:00 Screening - NAD [id number] Z13.9 C-scope: Dr. Brent lee 11/12/09, next 10 years from above date, declined this, no complaints , understand s the risks Mammogram: 10/24/16, /29/18: Neg, declines PAP: Not doing these, [...] to this plan of care Essential hypertension 89064669 I10 On HCTZ 12.5mg dailyOn metoprolol 100mg dailyDoes wellGet labs Hyperlipidemia 40489143 E78.5 On ASAOn pravastati n 40mg dailyOn vascepa 1gm 2 caps bid, renewed 01/03/2022 Does wellGet labs Gastroesop hageal reflux disease without esophagitis 110268204 K21.9 On pepcidDoes well Thrombocyt openic disorder 461571417 D69.[address] Meghan Monson well now Hyperglycemia 58762035 R 73.9 Does wellNot on any medsRepeat the labs Heart murmur 17076541 R0 1.1 ECHO 03/09/2020 ; Moderate MRNo complaints at this timeDeclin es any cardiology referrals Administra tion of influenza vaccine 70277376 Z23 [id number] Adolfo avila MD [facility] [place] [facility] [place] [address] [place] [id number] 01/11/2023 10:51:26 01/11/2023 11:27:33 Skin lesion 23255497 L98.9 OV 01/11/2023 :Feels that this could be a spider biteWill start on keflex, notify if not better, then may need to see Ramses De Leon states that she is UTD on the Tdap in 2017 [id number] Adolfo avila MD [facility] [place] [facility] [place] [address] [place] [id number] 07/10/2023 15:36:07 07/10/2023 16:26:31 Screening - NAD [id number] Z13.9 C-scope: Dr. Brent lee 11/12/09, next 10 years from above date, declined this, no complaints , understand s the risks Mammogram: 10/24/16, [email or web address] /29/18: Neg, declines PAP: Not doing these, [...] to this plan of care Essential hypertension 43582439 I10 On HCTZ 12.5mg dailyNot on metoprolol 100mg dailyDoes wellGet labs Hyperlipidemia 94987102 E78.5 On ASAOn pravastati n 40mg dailyOn vascepa 1gm 2 caps bidDoes wellGet labs Gastroesop hageal reflux disease without esophagitis 971279514 K21.9 On pepcidDoes well Thrombocyt openic disorder 881398692 D69.6 Dr Lacey 04/10/2023 , next in 6 months Does well now Hyperglycemia 90600097 R 73.9 Does wellNot on any meds, declined 07/10/2023 , more diet controlRep eat the labs Heart murmur [id number] R0 1.1 ECHO 03/09/2020 ; Moderate MRNo complaints at this timeDeclin es any cardiology referrals Hypercalcemia 55695146 E 83.52 Repeat the BMP, and iPTH will need to see nephrology Hypothyroidism 87256758 E03.9 S/p thyroid surgery in 2011, FT4 is low normalWill get US thyroid Adult heal th examination [id number] Z00.00 Screening for disorder [id number] Z13.9 [id number] Zeb Eng DPM [facility] [place] [facility] [address] [address] 07/27/2023 15:06:27 10/17/2023 18:02:16 Onychomycosis of toenails 449789960 B35.1 Congenital pes planus 23 656989 Q66.51 Edema of l ower extremity 735621999 R60.0 [id number] Zeb Eng DPM [facility] [address] [address] 11/02/2023 14:43:44 11/03/2023 09:45:09 Onychomycosis of toenails 196759473 B35.1 [id number] Adolfo avila MD [facility] [address] [facility] [place] [address] 11/29/2023 14:58:14 11/29/2023 15:59:44 Essential hypertension 18600550 I10 On HCTZ 12.5mg dailyOn metoprolol 100mg dailyDoes [facility] labs Screening - NAD 31836611 3 Z13.9 C-scope: Dr. Brent lee 11/12/09, next 10 years from above date, declined this, no complaints , understand s the risks Mammogram: 10/24/16, [id number] /29/18: Neg, [id number]: Do SBE, no complaints PAP: Not doing [...] agreeable to this plan of care Hyperlipidemia 91484100 E78.5 On ASAOn pravastati n 40mg dailyNot on vascepa 1gm 2 caps bidDoes [facility] labs Gastroesop hageal reflux disease without esophagitis [id number] K21.9 On pepcidDoes well Thrombocyt openic disorder 232375614 D69.6 Dr Gale well now Hyperglycemia 47197292 R 73.9 Does wellNot on any medsRepeat the labs Heart murmur 43632184 R0 1.1 ECHO 03/09/2020 ; Moderate MRNo complaints at this timeDeclin es any cardiology referrals Hypercalcemia 82782997 E 83.52 Repeat the BMP, and iPTH will need to see nephrology Hypothyroidism 32758826 E03.9 S/p thyroid surgery in 2011, FT4 [...] [employer] (MEDICARE REPLACEMENT PPO) [id number] [place] Meza [id number] 1 Argentina Meza 07/10/2023 1 [employer] (MEDICARE REPLACEMENT PPO) [id number] Argentina Meza [id number] 1 [place] Meza 07/27/2023 1 [employer] (MEDICARE REPLACEMENT PPO) [id number] Argentina Meza [id number] 1 [place] Meza 11/02/2023 1 [employer] (MEDICARE REPLACEMENT PPO) [id number] [place] Meza [id number] 1 [place] Meza 11/29/2023 1 [employer] (MEDICARE REPLACEMENT PPO) [id number] Argentina Meza [id number] 1 Argentina Meza Notes Date Note Type [...] lift her arm, no weakness in the facility examiner, pain is intermittentShe is R HDno N/T [...] no fevers or chills Adolfo Gutiérrez MD [address] [facility], [place], [address], [facility] [employer] 01/11/2023 11:27:39 07/10/2023 text/html OV 10/17/17:Here to [...] lift her arm, no weakness in the facility examiner, pain is intermittentShe is R HDno N/T [...] Gutiérrez MD [address], [place], [address], [employer] 07/20/2023 09:02:36 07/27/2023 text/html Pt RTC for NIDDM foot care. Nails long and dystrophic cooper. Unable to self-tx. Zeb Eng DPM [address], [place], [address], [employer] 07/27/2023 16:06:44 11/02/2023 text/html Pt RTC for cont c/o thick, dystrophic, mycotic nails cooper. Improving noticeably. Pt is satisfied and requests refill of her medication. To cont applying [employer] and taking Diflucan as Rx'ed once/wk. 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
--- OUTSIDE RECORDS SUMMARY | 2024-06-24 15:12 | XMS_ITS | CONTINUITY OF CARE DOCUMENT ---
Author Name laurel barragan Address Unknown Organization [facility] Address [address] [address] Phone [phone] Care Team Providers Care Director Of Primary Name Role Phone Rayne NAVARRO, Santiago Unavailable [phone] RADHA NAVARRO, BERNICE Unavailable RADHA NAVARRO, BERNICE Unavailable PROBLEMS Condition Status Date Provider Notes Murmur, cardiac, undiagnosed active [facility] INSURANCE PROVIDERS Payer name Policy type / Coverage type [place] red republican ID [employer] GOLD PLUS HMO HMO [employer] PPO HMO [id number] TREATMENT PLAN Date Name Complete Echo
== END 2024-06-24 13:45 | disposition home or self-care (01) ==
PROVIDERS: PCP Internal Medicine; Visit Provider Internal Medicine
DX: E04.1 Nontoxic single thyroid nodule (principal); E03.9 Hypothyroidism, unspecified
CPT/HCPCS: 76536

== ENCOUNTER 2024-11-25 08:46 | Outpatient (CLI) | payer MEDICARE, SELFPAY ==
[2024-11-25 09:09] LABS: Hematocrit 33.3 % (37.0-47.0); Hemoglobin 10.2 g/dL (12.0-15.0); Immature Platelet Fraction Pct 23.2 % (0.9-11.2); Mean Corpuscular HGB Conc 30.6 g/dl (32-36); Mean Corpuscular Hemoglobin 25.9 pg (26-34); Mean Corpuscular Volume 84.5 fl (80-100); Platelet Count Result 115 k/mm3 (150-375); Red Blood Count 3.94 M/mm3 (4.2-5.4); White Blood Count 3.2 K/mm3 (4.5-10.0)
--- OUTSIDE RECORDS SUMMARY | 2024-11-25 09:18 | XMS_ITS | Clinical Summary ---
Author Organization [facility] Address [address] [place] [address] Care Team Providers Care Barrel Dedenting Machine Operator Name Role Phone Adolfo Gutiérrez MD Primary [...] mg by mouth daily . Active C,E,zinc,copper 11/vqxde5m/lut (OCUVITE ADULT 50 PLUS ORAL) Take by mouth. Active cyanocobalamin 1,000 mcg Tablet Take 1,000 mcg by mouth daily. Active mv-mn-folic ac-vit K-herb 289 (ALIVE ONCE DAILY WOMEN 50 PLUS) 800-100 mcg Tablet Alive Once Daily Women 50 Plus 1 tablet daily Active kblb-KY-ene-epa -RFW-XXTU-gf-mv 1.5 mg iron- 8.73 mg capsule,IR & [...] Encounters Date Type Department Care Team Description 09/25/2024 External Device Data [facility] Provider, Abstract 09/24/2024 External Device Data [facility] Provider, Abstract 09/03/2024 External Device Data [facility] Provider, Abstract 08/27/2024 External Device Data [facility] Provider, Abstract [...] on file Legal Sex Female 3:35 PM STATISTICAL ANALYST Gender Identity Not on file Sexual Orientation [...] 11:14 AM CDT Height 170.2 cm (5' 7) 02/06/2019 1:40 PM STATISTICAL ANALYST Body Mass Index 29.51 02/06/2019 1:40 PM STATISTICAL ANALYST Plan of Treatment Upcoming Encounters Date Type Department Care Team (Late st Contact Info) Description 11/29/2024 11:00 AM CDT Office Visit [facility] Oncology and Hematology - [place] [address] [place] [address] Lawrence Lacey MD [address] [facility] [address] [place] [address] Health Maintenance Due Date Last Done Comments DTAP/TDAP/TD VACCINES (1 - Tdap) 1967 ZOSTER VACCINE (1 of 2) 1998 OSTEOPOROSIS SCREENING 2013 RSV VACCINE (60+ or ) (1 - 1-dose 75+ series) 2023 [place] Preventative Visit/Annual Wellness Visit 03/13/2024 INFLUENZA VACCINE (#1) 2024 , 01/06/2021, 02/24/2020, Additional history exists COLORECTAL SCREENING Discontinued 11/12/2009 Colorectal Cancer Screening Discontinued PNEUMOCOCCAL VACCINE 50+ YEARS Completed 06/09/2021 , 10/21/2019 FIT-DNA Q 3 years Discontinued FIT/FOBT Q 1 year Discontinued Flex Sig/CT Colonography Q 5 years Discontinued [facility] Care Teams Barrel Dedenting Machine Operator Relationship Specialty Start Date End Date Adolfo Gutiérrez MD PCP - General Internal Medicine 04/11/18
[2024-11-25 09:53] LABS: Iron 120 ug/dL (37-170)
[2024-11-25 10:03] LABS: Percent Iron Saturation 37 % (20-50)
[2024-11-25 10:05] LABS: Anion Gap 9 mmol/L (4-12); Blood Urea Nitrogen 21 mg/dL (7-17); Calcium 9.9 mg/dL (8.4-10.2); Carbon Dioxide 26 mmol/L (22-30); Chloride 103 mmol/L (98-107); Estimated Glomerular Filt Rate > 60; Glucose 105 mg/dL (65-110); Potassium 4.6 mmol/L (3.4-5.0); Sodium 138 mmol/L (137-145)
[2024-11-25 10:35] LABS: Ferritin 129.00 ng/mL (11.1-264)
[2024-11-25 11:16] LABS: Vitamin B12 788.0 pg/mL (239-931)
== END 2024-11-25 08:47 | disposition home or self-care (01) ==
LOC: ANHLAB 08:47
PROVIDERS: PCP Internal Medicine; Visit Provider Internal Medicine Hematology & Oncology
DX: D64.9 Anemia, unspecified (principal)
CPT/HCPCS: 36415; 80048; 82607; 82728; 82746; 83540; 83550; 85027; 85055